=== PATIENT | male | born 1985 | race Hispanic/Latino ===

== ENCOUNTER 2017-04-10 17:54 | Inpatient (IN) | payer MEDICAID, OTHER ==
[2017-04-10 18:02] VITALS: BMI 25.8
[2017-04-10 19:50] LABS: BASO # 0.1 K/uL (0.0-0.2); BASO % 0.6 % (0.0-2.0); EOS # 0.3 K/uL (0.0-0.7); EOS % 2.7 % (0.0-4.0); HEMATOCRIT 40.6 % (35.0-51.0); LYMPH # 2.2 K/uL (1.0-4.3); MEAN CELL VOLUME 86.8 fL (80.0-94.0); MEAN CORPUSCULAR HEMOGLOBIN 29.1 pg (27.0-31.0); MEAN CORPUSCULAR HGB CONC 33.5 g/dL (33.0-37.0); MEAN PLATELET VOLUME 8.1 fL (7.2-11.7); MONO # 1.1 K/uL (0.0-0.8); MONO % 10.4 % (0.0-10.0); NRBC % 0.1 % (0.0-2.0); RED CELL DISTRIBUTION WIDTH 13.5 % (11.5-14.5); WHITE BLOOD COUNT 10.7 K/uL (4.8-10.8)
[2017-04-10 19:59] LABS: CHLORIDE 103 mmol/L (98-107)
[2017-04-10 20:00] LABS: POTASSIUM 4.1 mmol/L (3.6-5.2); SODIUM 139 mmol/L (132-148)
[2017-04-10 20:02] LABS: GFR AFRICAN-AMERICAN > 60
[2017-04-10 20:03] LABS: ALB/GLOB RATIO 1.1 (1.0-2.1); ALKALINE PHOSPHATASE 77 U/L (38-126); ALT/SGPT 88 U/L (21-72); AST/SGOT 52 U/L (17-59); BILIRUBIN,TOTAL 0.6 mg/dL (0.2-1.3); BLOOD UREA NITROGEN 23 mg/dL (9-20); CALCIUM 9.2 mg/dl (8.6-10.4); CARBON DIOXIDE 26 mmol/L (22-30); GLUCOSE,RANDOM 79 mg/dL (75-110); TOTAL PROTEIN 7.8 g/dL (6.3-8.3)
[2017-04-10 20:04] LABS: ALCOHOL SERUM < 10 mg/dl (0-10)
[2017-04-10 20:07] LABS: RBC URINE 1 /hpf (0-3); URINE BACTERIA RARE (<OCC); URINE BILIRUBIN NEGATIVE (NEGATIVE); URINE BLOOD NEGATIVE (NEGATIVE); URINE COLOR Yellow (YELLOW); URINE GLUCOSE (UA) NORMAL (Normal); URINE KETONE TRACE mg/dL (NEGATIVE); URINE LEUKOCYTE ESTERASE NEG Leu/uL (Negative); URINE PROTEIN NEGATIVE (NEGATIVE); WBC URINE < 1 /hpf (0-5)
--- NOTE | 2017-04-10 21:28 | C.PDOC ---
Time Seen by Provider: 04/10/17 18:30 Chief Complaint (Nursing): Psychiatric Evaluation History Per: Patient Onset/Duration Of Symptoms: Days (1) Current Symptoms Are (Timing): Still Present Suicide/Self Injury Attempted (Context): None Modifying Factor(s): Narcotics, Cocaine Severity: Moderate Associated Symptoms: Depression, Suicidal Thoughts Additional History Per: Prior Records Past Medical History Reviewed: Historical Data, Nursing Documentation, Vital Signs Vital Signs: Last Vital Signs Temp 98.8 F 04/10/17 18:02 Pulse 88 04/10/17 18:02 Resp 17 04/10/17 18:02 BP 125/78 04/10/17 18:02 Pulse Ox 96 04/10/17 18:02 - Medical History PMH: Anxiety, Depression, Hepatitis (C) Family History: States: Unknown Family Hx - Social History Hx Alcohol Use: No Hx Substance Use: Yes (IVDU) - Immunization History Hx Tetanus Toxoid Vaccination: Yes Hx Influenza Vaccination: No Hx Pneumococcal Vaccination: No Review Of Systems Except As Marked, All Systems Reviewed And Found Negative. Constitutional: Negative for: Fever Cardiovascular: Negative for: Chest Pain Respiratory: Negative for: Shortness of Breath Gastrointestinal: Negative for: Vomiting, Abdominal Pain Musculoskeletal: Negative for: Neck Pain Neurological: Negative for: Weakness, Numbness, Seizures Psych: Negative for: Psychosis Physical Exam - Physical Exam Appears: Non-toxic, No Acute Distress Skin: Warm, Dry Head: Atraumatic, Normacephalic Eye(s): bilateral: PERRL, EOMI Neck: Normal ROM, Supple Cardiovascular: Rhythm Regular Respiratory: Normal Breath Sounds, No Accessory Muscle Use Gastrointestinal/Abdominal: Soft, No Tenderness Back: No CVA Tenderness Extremity: Normal ROM, Other (Track matos on arms) Neurological/Psych: Oriented x3, Normal Motor, Normal Sensation ED Course And Treatment - Laboratory Results Result Diagrams: 04/10/17 19:42 04/10/17 19:42 Lab Interpretation: No Acute Changes ECG: Interpreted By Me, Viewed By Me ECG Rhythm: Sinus Rhythm ECG Interpretation: No Acute Changes Rate From EC O2 Sat by Pulse Oximetry: 96 Pulse Ox Interpretation: Normal Progress Note: Pt is medically stable for psychiatric admission. Disposition Counseled Patient/Family Regarding: Studies Performed, Diagnosis - Disposition Disposition: HOSPITALIZED Disposition Time: 21:28 Condition: STABLE - Clinical Impression Clinical Impression: Depression, Drug abuse Decision To Admit - Pt Status Changed To: Hospital Disposition Of: Inpatient - Admit Certification Admit to Inpatient:: After my assessment, the patient will require hospitalization for at least two midnights. This is because of the severity of symptoms shown, intensity of services needed, and/or the medical risk in this patient being treated as an outpatient. - InPatient: Physician Admission Certification: I certify that this patient requires 2 or more midnights of care for the following reason:: Psych. - . Bed Request Type: Psychiatry Admitting Physician: Richard Rizo Patient Diagnosis: Depression, Drug abuse
[2017-04-10 22:04] VITALS: O2SAT 98
[2017-04-11] MEDS ORDERED: Pneumococcal 23-Valent Vaccine IM ONE
--- NOTE | 2017-04-11 00:22 | PCM.BM ---
<Jacinto Young - Last Filed: 04/11/17 00:19> Treatment Plan Problems - Problems identified on initial assessmt Depression Date Initiated: 04/10/17 Time Initiated: 23:00 Assessment reference: NA Status: Active Suicidal Ideation Date Initiated: 04/10/17 Time Initiated: 23:00 Assessment reference: NA Status: Active Substance Abuse Date Initiated: 04/10/17 Time Initiated: 23:00 Assessment reference: NA Status: Active Comment: Cocaine/ Heroin/ Methadone Treatment assets and liabiliti Patient Assests: cooperative, self-reliant, ADL independent, physically healthy , negotiates basic needs Patient Liabilities: financial problems, substance abuse - Milieu Protocol Maintain good personal hygiene: daily Encourage regular showers, daily Remind patient to perform daily oral care, daily Assist patient to perform ADL's Maintain personal safety: every shift Educate patient to report safety concerns to staff, every shift Monitor environment for contraband/sharps Medication safety: Monitor for expected outcome, potential side effects: every shift, Assess barriers to learning: every shift, Assess readiness for medication education: every shift <Malgorzata Maynard - Last Filed: 04/11/17 10:47> Family Contact Family involvement: Family/SO is involved Family contact: Patient declines to allow family contact at present - Goals for Treatment Patient goals for treatment: "I need to attend my court date." Discharge/Continuing Care - Education Needs Education Needs: Patient Medication, Patient Coping Skills, Patient Community resources - Discharge Discharge Criteria: Tolerates medication w/o severe side effects, No longer exhibiting s/s of withdrawal Discharge to:: Home, With Family - Treatment Team Participation Discussed with Family/SO: No Was Patient/Family/SO present at Treatment Team Meeting: Yes <Christ Sauer - Last Filed: 04/11/17 18:07> - Diagnosis (1) Opioid use disorder, severe, dependence Status: Acute Interventions: 04/11/17 18:06 * Assess 7x/week regarding severity of withdrawal * Educate regarding risks, benefits, side effects and alternatives of medications * Use Motivational Interviewing for abstinence * Use CBT for relapse prevention * Medication management for withdrawal symptoms * Encourage medication assisted treatment * (2) Depression Status: Acute Interventions: 04/11/17 18:07 * Assess/adjust medications daily and /or as needed * See patient on an individual basis 7x/week to assess symptoms of depression * Monitor for side effects & effectiveness of medications *
[2017-04-11] MEDS ORDERED: Aluminum Hydroxide/Magnesium Hydroxide Susp (30 mL) PO PRN (09:45)
--- NOTE | 2017-04-11 14:50 | PCM.PSYCH ---
Initial Psychiatric Evaluation - Initial Psychiatric Evaluation Type of Admission: Voluntary Legal Status: Capacity Chief Complaint (in patient's own words): "I relapsed one month ago." History of Present Illness and Precipitating Events: Pt. is seen, chart reviewed, and case discussed with staff. Pt. is a 32 y/o male with depression and long history of multiple substance abuse. Pt. reports having suicidal ideation for 2 weeks after he relapsed. As per pt., he has past history of suicide attempts due to overdose on drugs. Pt. reports being in "rehab 10x" and "detox 20x." Pt. reports to using +30 bags of heroin IV, 3-4 g of cocaine IV, 60-70 mg of methadone ( purchased off the streets; used on top of heroin), and 1-2 mg of Klonapin. Pt. has been using heroin for 20 yrs. Pt. reports history of going to [facility] and was on 90 mg of methadone treatment. Pt. reports he does not like suboxone b/c it makes him sick. Pt. claims he smokes one pack of cigarettes daily. Pt. denies use of alcohol, marijuana, PCP, and other pain killers. After care discussed. Pt. states he must absolutely leave on Friday (04/14/17) due to a court date. Past Psych Hx: inpatient 3-4x; suicidal thoughts in the past, but did not follow through; mood swings (has manic episodes of variable durations) Trauma: denies Legal: charges for shoplifting--court date on Friday; currently on probation Medical Hx: Hep C. Family Hx: father--bipolar, alcoholic () Social Hx: single; 3 children; lives with girlfriend whose due date is in 2 weeks; works in [employer] Current Medications: Active Medications Generic Name Dose Route Start Last Admin Trade Name Freq PRN Reason Stop Dose Admin Al Hydrox/Mg Hydrox/Simethicone 30 ml 04/11/17 09:45 Maalox 30 Ml PO TID PRN Indigestion / Heartburn Clonidine HCl 0.1 mg 04/11/17 09:45 Catapres PO Q8 PRN COWS Score More or Equal to 5 Gabapentin 300 mg 04/11/17 10:00 04/11/17 14:16 Neurontin PO 300 mg TID LOIDA Administration Hydroxyzine HCl 50 mg 04/11/17 09:47 Atarax PO Q6H PRN Anxiety Ibuprofen 600 mg 04/11/17 09:47 Motrin Tab PO Q6H PRN Pain, moderate (4-7) Loperamide HCl 2 mg 04/11/17 09:45 Imodium PO Q8 PRN Diarrhea Methadone HCl 20 mg 04/11/17 10:00 04/11/17 10:08 Methadone PO 04/16/17 09:59 20 mg Q24H LOIDA Administration Taper Mirtazapine 15 mg 04/11/17 22:00 Remeron PO HS LOIDA Ondansetron HCl 4 mg 04/11/17 09:45 Zofran Tab PO Q8 PRN Nausea/Vomiting Quetiapine Fumarate 100 mg 04/11/17 22:00 Seroquel PO HS LOIDA Trazodone HCl 100 mg 04/11/17 09:47 Desyrel PO HS PRN Insomnia Past Psychiatric History - Past Psychiatric History Pertinent Medical Hx (Current Medical&Sleep Prob, Allergies): Allergies Allergy/AdvReac Type Severity Reaction Status Date / Time No Known Allergies Allergy Verified 04/10/17 18:20 QUEtiapine [SEROquel] 200 mg PO HS 04/10/17 clonazePAM [clonAZEPAM] 1 mg PO BID 04/10/17 Review of Systems - Neurological Neurological: UNREMARKABLE - Psychiatric Psychiatric: As Per HPI, Anxiety, Depression, Mood Swings, Suicidal Ideation Mental Status Examination - Personal Presentation Personal Presentation: Looks stated age - Affect Affect: Constricted - Motor Activity Motor Activity: Calm - Reliability in Providing Information Reliability in Providing Information: Good - Speech Speech: Organized - Mood Mood: Depressed, Anxious - Formal Thought Process Formal Thought Process: No Impairment - Obsessions/Compulsions Obsessions: No Compulsions: No - Cognitive Functions Orientation: Person, Place, Situation, Time Sensorium: Alert Attention/Concentration: Attentive Abstract Thinking: [place] Estimate of Intelligence: Average Judgement: Intact, as evidence by: Insight regarding need for hospitalization Memory: Recent intact, as evidence by: Ability to recall events of the day - Risk Risk: Suicidal, Diminished functioning - Strength & Assets Inventory Strength & Assets Inventory: Employment status - Limitations Limitations: Other (Legal issues interfere with adequate hospitalization duration) DSM 5 DX - DSM 5 DSM 5 Diagnosis: major depression, recurrent, severe, without psychosis r/o bipolar II vs. borderline personality Opioid use d/o-severe Opioid withdrawal Cocaine use d/o-severe Zbfqgyvf-qbnrfgws-yhiayernsc use d/o-moderate - Recommended/Plan of Treatment Treatment Recommendations and Plan of Treatment: Depression: Seroquel 100 mg hs Remeron 15 mg PO HS Groups and individual treatment CBT Opioid use d/o-severe CBT for relapse prevention Psychoeducation Supportive therapy, individual therapy Use AR for abstinence Opioid withdrawal Methadone taper Gabapentin for augmentation Support and psychoeducation daily Attend group activities daily Consider and encourage MAT Refer to after care. Cocaine use d/o-severe Gabapentin AR and CBT Efslfdan-pckbzpqw-ioulqivrld use d/o-mdoerate CBT Psychoeducation Supportive therapy, individual therapy Use AR for abstinence 33 min Projected ELOS: 2-3 days due to his pending legal issues Prognosis: fair - Smoking Cessation Smoking Cessation Initiated: No
--- NOTE | 2017-04-11 18:38 | CARD ---
APPROVED REPORT EKG Measurement Heart [id number] <Conclusion> Normal sinus rhythm Normal ECG
--- NOTE | 2017-04-12 11:05 | PCM.PYCHPN ---
Psychiatric Progress Note - Psychiatric Progress Note Patient seen today, length of contact: 16 min Patient Chief Complaint: "I am withdrawing" Problems Identified/Issues Discussed: The pt is seen, chart reviewed, case discussed with staff. The pt is compliant with medications and reports no side-effects. Symptoms are improving but needs more time to stabilize. After care discussed, support and psychoeducation given. Still wants to leave on Friday very early. Medication Change: Yes (detox changes daily) Medical Record Reviewed: Yes Mental Status Examination - Cognitive Function Orientation: Person, Place, Situation, Time Memory: Intact Attention: WNL Concentration: Poor Association: WNL Fund of Knowledge: WNL - Mood Mood: Depressed, Anxious - Affect Affect: Constricted - Speech Speech: Appropriate - Formal Thought Process Formal Thought Process: No Impairment - Suicidal Ideation Suicidal Ideation: No - Homicidal Ideation Homicidal Ideation: No Goal/Treatment Plan - Goal/Treatment Plan Need for Continued Stay: Discharge may exacerbated symptoms, Severe functional impairment Progress Toward Problem(s) and Goals/Treatment Plan: Depression: Seroquel 100 mg hs Remeron 15 mg PO HS Groups and individual treatment CBT Opioid use d/o-severe CBT for relapse prevention Psychoeducation Supportive therapy, individual therapy Use AK for abstinence Opioid withdrawal Methadone taper Gabapentin for augmentation Support and psychoeducation daily Attend group activities daily Consider and encourage MAT Refer to after care. Cocaine use d/o-severe Gabapentin AK and CBT Joduaaqn-nnexgiis-pmbdfrqwde use d/o-mdoerate CBT Psychoeducation Supportive therapy, individual therapy Use AK for abstinence Estimated Date of D/C: 04/14/17
[2017-04-14 07:40] VITALS: BP 115/79; PULSE 64; RESP 18; TEMP 97.7
--- NOTE | 2017-04-14 08:42 | PCM.PYCHDC ---
Mental Status Examination - Mental Status Examination Orientation: Person, Place, Situation, Time Memory: Intact Mood: Anxious Affect: Constricted Speech: Appropriate Attention: WNL Concentration: WNL Association: WNL Fund of Knowledge: WNL Formal Thought Process: No Impairment Suicidal Ideation: No Current Homicidal Ideation?: No Discharge Summary - Discharge Note Reason for Hospitalization: Depression, SI, heroin detox Consultations:: List each consultation separately and include: 1. Reason for request. 2. Findings. 3. Follow-up Summary of Hospital Course include:: 1. Description of specific treatment plan utilized for patients during their course of treatmen. 2. Summarize the time- course for resolution of acute symptoms and/or regressed behaviors. 3. Describe issues identified and worked on during hospitalization. 4. Describe medication utilized. 5. Describe medical problems identified and treated. 6. Reassessment of suicide risk Summary of Hospital Course: On admission: Pt. is a 32 y/o male with depression and long history of multiple substance abuse. Pt. reports having suicidal ideation for 2 weeks after he relapsed. As per pt., he has past history of suicide attempts due to overdose on drugs. Pt. reports being in "rehab 10x" and "detox 20x." Pt. reports to using +30 bags of heroin IV, 3-4 g of cocaine IV, 60-70 mg of methadone ( purchased off the streets; used on top of heroin), and 1-2 mg of Klonapin. Pt. has been using heroin for 20 yrs. Pt. reports history of going to [facility] and was on 90 mg of methadone treatment. Pt. reports he does not like suboxone b/c it makes him sick. Pt. claims he smokes one pack of cigarettes daily. Pt. denies use of alcohol, marijuana, PCP, and other pain killers. After care discussed. Pt. states he must absolutely leave on Friday (04/14/17) due to a court date. Hospital course: The pt was admitted and started on treatment with psychotherapy, support, psychoeducation and medications. IL and CBT used. The pt attended groups and activities, as well as milieu therapy. All the risks and benefits of medications are discussed and the patient understood and agreed. The pt improved with the treatments provided. After care discussed with the patient. He had to leave early withhis bc he had a "very important" court today - Final Diagnosis (DSM 5) Condition upon Discharge: STABLE DSM 5: Major depression, recurrent, severe, without psychosis r/o bipolar II vs. borderline personality Opioid use d/o-severe Opioid withdrawal Cocaine use d/o-severe Yuoxsfum-ldywlgtt-andrvvpbgl use d/o-moderate Disposition: HOME/ ROUTINE Follow-up Treatment Plan: Continue below medications after discharge. He will go to court and then a program Follow after care plan as discussed. Use relapse prevention skills Return to ER or call 911 if suicidal, homicidal or symptoms relapse. Stay away from stress, alcohol and drugs. See primary doctor once a year. Prescriptions/Medication Reconciliation: Gabapentin [Neurontin] 300 mg PO TID #90 cap Mirtazapine [Remeron] 30 mg PO HS #30 tab QUEtiapine [Seroquel] 100 mg PO HS #30 tab - Smoking Cessation Smoking Cessation Medication prescribed: No - Antipsychotic Medications Pt discharged on 2 or more routine antipsychotic medications: No
--- NOTE | 2017-04-14 08:42 | PCM.PYCHPN ---
Psychiatric Progress Note - Psychiatric Progress Note Patient seen today, length of contact: 16 min Patient Chief Complaint: "I am a little better" Problems Identified/Issues Discussed: The pt is seen, chart reviewed, case discussed with staff. Support given, CBT and TX used briefly No new symptoms reported, improving slowly and needs more time No SEs from medications, risks discussed. After care discussed Medication Change: Yes Medical Record Reviewed: Yes Mental Status Examination - Cognitive Function Orientation: Person, Place, Situation, Time Memory: Intact Attention: WNL Concentration: Poor Association: WNL Fund of Knowledge: WNL - Mood Mood: Depressed, Anxious - Affect Affect: Constricted - Speech Speech: Appropriate - Formal Thought Process Formal Thought Process: No Impairment - Suicidal Ideation Suicidal Ideation: No - Homicidal Ideation Homicidal Ideation: No Goal/Treatment Plan - Goal/Treatment Plan Need for Continued Stay: Discharge may exacerbated symptoms, Severe functional impairment Progress Toward Problem(s) and Goals/Treatment Plan: Depression: Seroquel 100 mg hs Remeron 15 mg PO HS Groups and individual treatment CBT Opioid use d/o-severe CBT for relapse prevention Psychoeducation Supportive therapy, individual therapy Use TX for abstinence Opioid withdrawal Methadone taper Gabapentin for augmentation Support and psychoeducation daily Attend group activities daily Consider and encourage MAT Refer to after care. Cocaine use d/o-severe Gabapentin [place] and CBT Rvpxqpjx-zavegyhm-bavscadszb use d/o-mdoerate CBT Psychoeducation Supportive therapy, individual therapy Use [place] for abstinence
== END 2017-04-14 07:05 | disposition home or self-care (01) | DRG 885 ==
LOC: C.ER 17:54 → C.5E 21:29
PROVIDERS: ADMIT Psychiatry & Neurology Psychiatry; ATTEND Psychiatry & Neurology Psychiatry
PROC: GZ3ZZZZ Medication Management (ICD-10-PCS; principal; 2017-04-10)
PROC: HZ2ZZZZ Detoxification Services for Substance Abuse Treatment (ICD-10-PCS; 2017-04-10)
PROC: GZHZZZZ Group Psychotherapy (ICD-10-PCS; 2017-04-10)
PROC: HZ59ZZZ Individual Psychotherapy for Substance Abuse Treatment, Supportive (ICD-10-PCS; 2017-04-10)
PROC: GZ56ZZZ Individual Psychotherapy, Supportive (ICD-10-PCS; 2017-04-10)
PROC: HZ46ZZZ Group Counseling for Substance Abuse Treatment, Psychoeducation (ICD-10-PCS; 2017-04-10)
DX: F33.2 Major depressive disorder, recurrent severe without psychotic features (principal); F11.23 Opioid dependence with withdrawal; R45.851 Suicidal ideations; F14.20 Cocaine dependence, uncomplicated; F13.10 Sedative, hypnotic or anxiolytic abuse, uncomplicated; F14.90 Cocaine use, unspecified, uncomplicated; F17.210 Nicotine dependence, cigarettes, uncomplicated; Z91.5 Personal history of self-harm; Z79.899 Other long term (current) drug therapy; Z65.3 Problems related to other legal circumstances

== ENCOUNTER 2017-06-21 21:20 | Inpatient (IN) | payer MEDICAID, OTHER ==
[2017-06-21 21:21] VITALS: BMI 25.8
--- NOTE | 2017-06-21 21:47 | C.PDOC ---
History Of Present Illness 32 y/o male presents to the ED c/o depression and SI. Plan is to overdose on drugs- he injects both heroin and cocaine. He reports many life stressors contributing to his depression including recent loss of job, drug problem, inability to visit his daughter due to restraining order. Time Seen by Provider: 06/21/17 21:46 Chief Complaint (Nursing): Psychiatric Evaluation History Per: Patient History/Exam Limitations: no limitations Onset/Duration Of Symptoms: Hrs Current Symptoms Are (Timing): Still Present Suicide/Self Injury Attempted (Context): Ingestion Associated Symptoms: Depression, Suicidal Thoughts, Suicidal Plan Recent travel outside of the [place]: No Additional History Per: Patient Past Medical History Reviewed: Historical Data, Nursing Documentation, Vital Signs Vital Signs: Last Vital Signs Temp 97.9 F 06/25/17 06:50 Pulse 73 06/25/17 06:50 Resp 20 06/25/17 06:50 BP 103/68 06/25/17 06:50 Pulse Ox 95 06/22/17 01:39 - Medical History PMH: Anxiety, Depression (2 SUICIDE ATTEMPTS IN THE PAST), Hepatitis (C) Denies: Diabetes, HIV, HTN, Chronic Kidney Disease, Seizures, Sexually Transmitted Disease Surgical History: No Surg Hx - [facility] Procedures DETOXIFICATION SERVICES FOR SUBSTANCE ABUSE TREATMENT (04/10/17) GROUP ACCOUNTS PAYABLE BOOKKEEPER FOR SUBSTANCE ABUSE TREATMENT, PSYCHOEDUCATION (04/10/17) GROUP PSYCHOTHERAPY (04/10/17) INDIV PSYCHOTHERAPY FOR SUBSTANCE ABUSE TREATMENT, SUPPORT (04/10/17) INDIVIDUAL PSYCHOTHERAPY, SUPPORTIVE (04/10/17) MEDICATION MANAGEMENT (04/10/17) Family History: States: Unknown Family Hx - Social History Hx Alcohol Use: No Hx Substance Use: Yes - Immunization History Hx Tetanus Toxoid Vaccination: Yes Hx Influenza Vaccination: No Hx Pneumococcal Vaccination: No Review Of Systems Except As Marked, All Systems Reviewed And Found Negative. Constitutional: Negative for: Fever, Chills Cardiovascular: Negative for: Chest Pain Respiratory: Negative for: Cough, Shortness of Breath Gastrointestinal: Negative for: Nausea, Vomiting, Abdominal Pain Neurological: Negative for: Weakness, Numbness, Headache Psych: Positive for: Depression, Suicidal ideation Physical Exam - Physical Exam Appears: Non-toxic, No Acute Distress Skin: Warm, Dry Eye(s): bilateral: PERRL Nose: No Epistaxis Oral Mucosa: Moist Cardiovascular: Rhythm Regular Respiratory: No Decreased Breath Sounds, No Accessory Muscle Use Gastrointestinal/Abdominal: Soft, No Tenderness, No Distention, No Guarding, No Rebound Neurological/Psych: Oriented x3 ED Course And Treatment - Laboratory Results Result Diagrams: 06/21/17 22:10 06/21/17 22:10 Medical Decision Making Medical Decision Making: EKG - normal sinus rhythm 76 BPM, normal EKG Disposition - Disposition Disposition: HOSPITALIZED Disposition Time: 01:29 Condition: STABLE - Clinical Impression Clinical Impression: Depression, Opioid use disorder, severe, dependence - Scribe Statement The provider has reviewed the documentation as recorded by the Scribe Roger James All medical record entries made by the Scribe were at my direction and personally dictated by me. I have reviewed the chart and agree that the record accurately reflects my personal performance of the history, physical exam, medical decision making, and the department course for this patient. I have also personally directed, reviewed, and agree with the discharge instructions and disposition.
[2017-06-21 22:13] LABS: BASO # 0.1 K/uL (0.0-0.2); BASO % 0.6 % (0.0-2.0); EOS # 0.1 K/uL (0.0-0.7); EOS % 1.3 % (0.0-4.0); LYMPH % 21.1 % (20.0-40.0); MEAN CELL VOLUME 87.3 fL (80.0-94.0); MEAN CORPUSCULAR HEMOGLOBIN 29.1 pg (27.0-31.0); MEAN CORPUSCULAR HGB CONC 33.3 g/dL (33.0-37.0); MEAN PLATELET VOLUME 8.2 fL (7.2-11.7); MONO # 0.7 K/uL (0.0-0.8); MONO % 7.7 % (0.0-10.0); RED CELL DISTRIBUTION WIDTH 13.9 % (11.5-14.5); WHITE BLOOD COUNT 9.5 K/uL (4.8-10.8)
[2017-06-21 22:24] LABS: URINE BACTERIA RARE (<OCC); URINE BILIRUBIN NEGATIVE (NEGATIVE); URINE BLOOD NEGATIVE (NEGATIVE); URINE COLOR Amber (YELLOW); URINE GLUCOSE (UA) NORMAL (Normal); URINE KETONE NEGATIVE (NEGATIVE); URINE LEUKOCYTE ESTERASE NEG Leu/uL (Negative); URINE PROTEIN NEGATIVE (NEGATIVE); URINE UROBILINOGEN NORMAL mg/dL (0.2-1.0); WBC URINE 1 /hpf (0-5)
[2017-06-21 22:25] LABS: ALB/GLOB RATIO 1.3 (1.0-2.1); ALCOHOL SERUM < 10 mg/dl (0-10); ALKALINE PHOSPHATASE 69 U/L (38-126); ALT/SGPT 98 U/L (21-72); AST/SGOT 53 U/L (17-59); BILIRUBIN,TOTAL 1.1 mg/dL (0.2-1.3); BLOOD UREA NITROGEN 24 mg/dL (9-20); CARBON DIOXIDE 28 mmol/L (22-30); CHLORIDE 101 mmol/L (98-107); GFR AFRICAN-AMERICAN > 60; GLUCOSE,RANDOM 95 mg/dL (75-110); POTASSIUM 3.6 mmol/L (3.6-5.2); SODIUM 137 mmol/L (132-148); TOTAL PROTEIN 7.9 g/dL (6.3-8.3)
[2017-06-22 01:40] VITALS: O2SAT 95
--- NOTE | 2017-06-22 03:53 | PCM.BM ---
<JesuszanShelly - Last Filed: 06/22/17 03:51> Treatment Plan Problems - Problems identified on initial assessmt Depression Date Initiated: 06/22/17 Time Initiated: 03:50 Assessment reference: NA Status: Active Priority: 1 Suicidal Ideations Date Initiated: 06/22/17 Time Initiated: 03:50 Assessment reference: NA Status: Active Priority: 2 Substance Abuse Date Initiated: 06/22/17 Time Initiated: 03:52 Assessment reference: NA Status: Active Priority: 3 Comment: Opiates Treatment assets and liabiliti Patient Assests: cooperative, insightful, resourceful, self-reliant, ADL independent, physically healthy, negotiates basic needs, cognitively intact Patient Liabilities: financial problems, substance abuse - Milieu Protocol Maintain good personal hygiene: daily Encourage regular showers, daily Remind patient to perform daily oral care, daily Assist patient to perform ADL's Maintain personal safety: every shift Monitor environment for contraband/sharps , other Educate patient to report safety concerns to staff (prn) Medication safety: Monitor for expected outcome, potential side effects: every shift, Assess barriers to learning: every shift, Assess readiness for medication education: every shift <Malgorzata Maynard - Last Filed: 06/23/17 11:26> Family Contact Family involvement: Famliy/SO not involved Family contact: Patient declines to allow family contact at present - Goals for Treatment Patient goals for treatment: "I just want an outpatient program." Discharge/Continuing Care - Education Needs Education Needs: Patient Medication, Patient Coping Skills, Patient Placement options, Patient Community resources - Discharge Discharge Criteria: Tolerates medication w/o severe side effects, Free of Suicidal thoughts, No longer exhibiting s/s of withdrawal Discharge to:: Home - Treatment Team Participation Discussed with Family/SO: No Was Patient/Family/SO present at Treatment Team Meeting: Yes <Richard Rizo - Last Filed: 06/23/17 11:31> - Diagnosis (1) Bipolar mixed affective disorder, moderate Status: Acute Interventions: 06/23/17 11:31 * Assess/adjust medications daily and /or as needed * See patient on an individual basis 7x/week to assess level of manic behaviors and stability * Discuss risks, benefits, side effects and alternatives of medications * (2) Opioid use disorder, severe, dependence Status: Acute Interventions: 06/23/17 11:31 * Assess 7x/week regarding severity of withdrawal * Educate regarding risks, benefits, side effects and alternatives of medications * Use Motivational Interviewing for abstinence * Use CBT for relapse prevention * Medication management for withdrawal symptoms * Encourage medication assisted treatment *
--- NOTE | 2017-06-22 17:37 | PCM.PSYCH ---
Initial Psychiatric Evaluation - Initial Psychiatric Evaluation Type of Admission: Voluntary Legal Status: Capacity Chief Complaint (in patient's own words): "I have heroin withdrawal symptoms" History of Present Illness and Precipitating Events: This is a 32 yo male with pphx of depression and heroin use d/o. Patient was admitted for depression, with suicidal ideation for 4 days. patient states he wants to shot as many drugs as he can and take klonopin. Patient stated that he can't seem to get anything together. Patient said he was laid off last week his fiance just had a baby a week ago and the baby is not sleeping at night and just cries. Patient explained he's barely making ends meet and at this point he 'd "rather ". Pt reproted that he does not want to end his life because he has a 5 days old son. Patient further explained that he's using about 40-50 bags of heroin IV daily and about 10-15 grams of cocaine daily IV. He reproted that he has opioid withdrawal symptoms including, yawning, hot and cold sweats, feeling like a cold turkey, He reproted that he was admitted in [facility] but left A due to court date. He reproted that he wants to complete his detox this time. Patient stated he get the money by stealing, scamming, bartering, etc. Patient currently admitted to suicidal ideations with a plan to "shoot drugs and eat klonopin". Patient currently denied any homicidal ideations along with auditory/visual hallucinations. Past meds: Klonopin 1 mg po bid Seroquel 100 mg po daily and 200 mg HS Neurontin 300 mg po TID , Current Medications: Active Medications Generic Name Dose Route Start Last Admin Trade Name Freq PRN Reason Stop Dose Admin Clonidine HCl 0.1 mg 06/22/17 03:52 Catapres PO Q8 PRN COWS Score More or Equal to 5 Gabapentin 200 mg 06/22/17 10:00 06/22/17 17:14 Neurontin PO 200 mg TID LOIDA Administration Hydroxyzine HCl 25 mg 06/22/17 03:52 Atarax PO Q6 PRN Anxiety Ibuprofen 400 mg 06/22/17 03:56 Motrin Tab PO Q6H PRN Pain, moderate (4-7) Loperamide HCl 2 mg 06/22/17 03:52 Imodium PO Q8 PRN Diarrhea Mirtazapine 7.5 mg 06/22/17 22:00 Remeron PO HS [facility] Ondansetron HCl 4 mg 06/22/17 03:52 Zofran Tab PO Q8 PRN Nausea/Vomiting Allergies denied Past Psychiatric History - Past Psychiatric History Previous Treatment History: Inpatient Prior Professional Help: detox Prior Psychiatric Treatment: [facility] History of Abuse: denied History of ETOH/Drug Use: please see HPI History of Family Illness: denied Pertinent Medical Hx (Current Medical&Sleep Prob, Allergies): Allergies Allergy/AdvReac Type Severity Reaction Status Date / Time No Known Allergies Allergy Verified 04/10/17 18:20 QUEtiapine [SEROquel] 200 mg PO HS 04/10/17 clonazePAM [clonAZEPAM] 1 mg PO BID 04/10/17 Gabapentin [Neurontin] 300 mg PO TID #90 cap 04/14/17 Mirtazapine [Remeron] 30 mg PO HS #30 tab 04/14/17 QUEtiapine [Seroquel] 100 mg PO HS #30 tab 04/14/17 Review of Systems - Review of Systems All systems: reviewed and no additional remarkable complaints except (HPI) - Constitutional Constitutional: Chills, Sweats, Malaise - EENT Eyes: Discharge Nose/Mouth/Throat: Nasal Congestion - Cardiovascular Cardiovascular: As Per HPI - Respiratory Respiratory: As Per HPI - Gastrointestinal Gastrointestinal: Abdominal Pain, Diarrhea - Genitourinary Genitourinary: UNREMARKABLE - Reproductive: Male Reproductive:Male: UNREMARKABLE - Musculoskeletal Musculoskeletal: Muscle Cramps - Neurological Neurological: UNREMARKABLE - Psychiatric Psychiatric: As Per HPI - Endocrine Endocrine: UNREMARKABLE - Hematologic/Lymphatic Hematologic: UNREMARKABLE Mental Status Examination - Personal Presentation Personal Presentation: Looks stated age - Affect Affect: Depressed - Motor Activity Motor Activity: Psychomotor Agitation - Reliability in Providing Information Reliability in Providing Information: Good - Speech Speech: Organized - Mood Mood: Depressed - Formal Thought Process Formal Thought Process: No Impairment - Hallucinations/Delusions Delusions: Other (denied) - Obsessions/Compulsions Obsessions: No Compulsions: No - Cognitive Functions Orientation: Person, Place, Situation, Time Sensorium: Alert Attention/Concentration: Attentive Abstract Thinking: As evidence by abstract perception of proverbs Estimate of Intelligence: Average Memory: Recent intact, as evidence by: Ability to recall events of the day - Risk Risk: Suicidal - Strength & Assets Inventory Strength & Assets Inventory: Intelligence, Family support, Education, Employment status, Employment history, Skills, Cooperative - Limitations Limitations: Other (chronic drug use) DSM 5 DX - DSM 5 DSM 5 Diagnosis: MDD recurrent, without psychotic features, Opioid use d/o, withdrawal symptoms, dependence - Recommended/Plan of Treatment Treatment Recommendations and Plan of Treatment: Start Remeron 15 mg po HS for depression and anxiety. Prn meds for opioid withdrawal. Monitor vitals. Pdychieducation provided regarding meds, benefits, s/e, risk benefits, risk and alternative. He verbalized understanding and agree with treatment plan. individual and group therapy. Therapy in milieu. Time spend 35 minutes Projected ELOS: 5-7 days Prognosis: fair with meds Discharge Plan and Discharge Criteria: improvement in depressive and opioid withdrawal symptoms. Recommend inpatient [facility] program for substance abuse after d/c
--- NOTE | 2017-06-23 10:13 | PCM.PYCHPN ---
Psychiatric Progress Note - Psychiatric Progress Note Patient seen today, length of contact: 15 min Patient Chief Complaint: I am still withdrawing. Problems Identified/Issues Discussed: Patient seen and evaluated, chart reviewed and discussed with the nurse. Today patient appears anxious and reports withdrawal symptoms. He reports depressed mood but denies any feelings of hopelessness and helplessness and denies any suicidal ideation or homicidal ideation. He denies any auditory or visual hallucinations. He is taking medication and denied any side effects. He needs some time for stabilization. Supportive therapy and psychoeducation were given. Medication Change: No Medical Record Reviewed: Yes Mental Status Examination - Cognitive Function Orientation: Person, Place, Situation, Time Memory: Intact Attention: WNL Concentration: Poor Association: WNL Fund of Knowledge: Poor - Mood Mood: Depressed, Anxious - Affect Affect: Constricted, Depressed - Speech Speech: Soft - Formal Thought Process Formal Thought Process: No Impairment - Suicidal Ideation Suicidal Ideation: No - Homicidal Ideation Homicidal Ideation: No Goal/Treatment Plan - Goal/Treatment Plan Need for Continued Stay: Severe depression anxiety, Severe functional impairment , Other Progress Toward Problem(s) and Goals/Treatment Plan: MDD recurrent, without psychotic features, Opioid use d/o, withdrawal symptoms, dependence Remeron 15 mg po HS for depression and anxiety. Prn meds for opioid withdrawal. Monitor vitals. Psychoeducation provided regarding meds, benefits, s/e, risk benefits, risk and alternative. He verbalized understanding and agree with treatment plan. individual and group therapy. Therapy in milieu. - Smoking Cessation Smoking Cessation Initiated: No
--- NOTE | 2017-06-23 17:22 | CARD ---
APPROVED REPORT EKG Measurement Heart [id number] <Conclusion> Normal sinus rhythm Normal ECG
--- NOTE | 2017-06-24 21:32 | PCM.PYCHPN ---
Psychiatric Progress Note - Psychiatric Progress Note Patient seen today, length of contact: 15 min Patient Chief Complaint: I am still withdrawing. Problems Identified/Issues Discussed: Patient seen and evaluated, chart reviewed and discussed with the nurse. As per the staff, pt remained isolated and withdrawn. He appears less depressed and less anxious but he still reports withdrawal symptoms. He denies any feelings of hopelessness and helplessness and denies any suicidal ideation or homicidal ideation. He is taking medication and denied any side effects. Supportive therapy and psychoeducation were given. Medication Change: Yes (increase remeron) Medical Record Reviewed: Yes Mental Status Examination - Cognitive Function Orientation: Person, Place, Situation, Time Memory: Intact Attention: WNL Concentration: Poor Association: WNL Fund of Knowledge: Poor - Mood Mood: Depressed, Anxious - Affect Affect: Constricted, Depressed - Speech Speech: Soft - Formal Thought Process Formal Thought Process: No Impairment - Suicidal Ideation Suicidal Ideation: No - Homicidal Ideation Homicidal Ideation: No Goal/Treatment Plan - Goal/Treatment Plan Need for Continued Stay: Severe depression anxiety, Severe functional impairment Progress Toward Problem(s) and Goals/Treatment Plan: MDD recurrent, without psychotic features, Opioid use d/o, withdrawal symptoms, dependence Methadone taper Remeron 30 mg po HS for depression and anxiety. Prn meds for opioid withdrawal. Monitor vitals. Psychoeducation provided regarding meds, benefits, s/e, risk benefits, risk and alternative. He verbalized understanding and agree with treatment plan. individual and group therapy. Therapy in milieu. - Smoking Cessation Smoking Cessation Initiated: No
[2017-06-25 06:51] VITALS: BP 103/68; PULSE 73; RESP 20; TEMP 97.9
--- NOTE | 2017-06-25 10:58 | PCM.PYCHDC ---
Mental Status Examination - Mental Status Examination Orientation: Person, Place, Situation, Time Memory: Intact Mood: Neutral Affect: Constricted Speech: Soft Attention: WNL Concentration: WNL Association: WNL Fund of Knowledge: WNL Formal Thought Process: No Impairment Description of patient's judgement and insight: good, fair Psychotic Thoughts and Behaviors: denies any AVH Suicidal Ideation: No Current Homicidal Ideation?: No Discharge Summary - Discharge Note Reason for Hospitalization: This is a 32 yo male with pphx of depression and heroin use d/o. Patient was admitted for depression, with suicidal ideation for 4 days. patient states he wants to shot as many drugs as he can and take klonopin. Patient stated that he can't seem to get anything together. Patient said he was laid off last week his fiance just had a baby a week ago and the baby is not sleeping at night and just cries. Patient explained he's barely making ends meet and at this point he 'd "rather ". Pt reproted that he does not want to end his life because he has a 5 days old son. Patient further explained that he's using about 40-50 bags of heroin IV daily and about 10-15 grams of cocaine daily IV. He reproted that he has opioid withdrawal symptoms including, yawning, hot and cold sweats, feeling like a cold turkey, He reproted that he was admitted in [facility] but left A due to court date. He reproted that he wants to complete his detox this time. Patient stated he get the money by stealing, scamming, bartering, etc. Patient currently admitted to suicidal ideations with a plan to "shoot drugs and eat klonopin". Patient currently denied any homicidal ideations along with auditory/visual hallucinations. Consultations:: List each consultation separately and include: 1. Reason for request. 2. Findings. 3. Follow-up Summary of Hospital Course include:: 1. Description of specific treatment plan utilized for patients during their course of treatmen. 2. Summarize the time- course for resolution of acute symptoms and/or regressed behaviors. 3. Describe issues identified and worked on during hospitalization. 4. Describe medication utilized. 5. Describe medical problems identified and treated. 6. Reassessment of suicide risk Summary of Hospital Course: During the course of his stay, patient (pt) started progressively improving and he no longer remained irritable, depressed, and suicidal. His mood and anxiety symptoms were improved and he started attending groups and meetings and started socializing. Patient denied any feelings of hopelessness, helplessness, and worthlessness, denied any problem with the sleep or appetite, denied suicidal ideation or homicidal ideation. Pt denied any auditory or visual hallucinations. Some changes were made in his current medications and patient was discharged on following medications. He tolerated these medications very well and denied any side effects. He was discharged to an [facility] program, '[facility] in [place], [place]. - Diagnosis (1) Bipolar mixed affective disorder, moderate Status: Acute (2) Opioid use disorder, severe, dependence Status: Acute - Final Diagnosis (DSM 5) Condition upon Discharge: STABLE DSM 5: MDD recurrent, without psychotic features, Opioid use d/o, withdrawal symptoms, dependence Disposition: HOME/ ROUTINE Follow-up Treatment Plan: Education: Pt was educated and counseled about the risks and benefits of taking and not taking medications. Pt was educated and counseled about the risks of drinking and abusing drugs. Pt was educated and counseled to go to the ER or call 911 if pt develop suicidal ideation or homicidal ideation, worsening of symptoms or severe side effects of the meds. Prescriptions/Medication Reconciliation: Gabapentin [Neurontin] 300 mg PO BID #60 cap Mirtazapine [Remeron] 30 mg PO HS #30 tab - Smoking Cessation Smoking Cessation Medication prescribed: No - Antipsychotic Medications Pt discharged on 2 or more routine antipsychotic medications: No
== END 2017-06-25 11:45 | disposition home or self-care (01) | DRG 744 ==
LOC: C.ER 21:20 → C.5E 06-22 01:29
PROVIDERS: ADMIT Psychiatry & Neurology Psychiatry; ATTEND Psychiatry & Neurology Psychiatry
PROC: HZ2ZZZZ Detoxification Services for Substance Abuse Treatment (ICD-10-PCS; principal; 2017-06-22)
PROC: HZ56ZZZ Individual Psychotherapy for Substance Abuse Treatment, Psychoeducation (ICD-10-PCS; 2017-06-22)
PROC: HZ42ZZZ Group Counseling for Substance Abuse Treatment, Cognitive-Behavioral (ICD-10-PCS; 2017-06-22)
PROC: HZ59ZZZ Individual Psychotherapy for Substance Abuse Treatment, Supportive (ICD-10-PCS; 2017-06-22)
PROC: HZ52ZZZ Individual Psychotherapy for Substance Abuse Treatment, Cognitive-Behavioral (ICD-10-PCS; 2017-06-22)
PROC: HZ46ZZZ Group Counseling for Substance Abuse Treatment, Psychoeducation (ICD-10-PCS; 2017-06-22)
DX: F11.23 Opioid dependence with withdrawal (principal); B19.20 Unspecified viral hepatitis C without hepatic coma; R45.851 Suicidal ideations; F33.8 Other recurrent depressive disorders; F41.9 Anxiety disorder, unspecified

== ENCOUNTER 2017-09-25 00:55 | Inpatient (IN) | payer MEDICAID, OTHER ==
[2017-09-25 00:56] VITALS: BMI 25.8
--- NOTE | 2017-09-25 02:26 | C.PDOC ---
History Of Present Illness 32 year old male with psychiatric history presents to the ED for cocaine and heroin detox. Last use earlier tonight prior to arrival. He denies suicidal or homicidal ideation. He has no other acute complaints at this time. Time Seen by Provider: 09/25/17 02:26 Chief Complaint (Nursing): Psychiatric Evaluation History Per: Patient History/Exam Limitations: no limitations Onset/Duration Of Symptoms: Unknown Current Symptoms Are (Timing): Still Present Suicide/Self Injury Attempted (Context): None Modifying Factor(s): Narcotics, Cocaine Associated Symptoms: denies: Suicidal Thoughts, Suicidal Plan Involuntary Hold By: None Past Medical History Reviewed: Historical Data, Nursing Documentation, Vital Signs Vital Signs: Last Vital Signs Temp 99.1 F 09/25/17 01:43 Pulse 84 09/25/17 01:43 Resp 20 09/25/17 01:43 BP 138/94 H 09/25/17 01:43 Pulse Ox 96 09/25/17 02:33 - Medical History PMH: Anxiety, Depression (2 SUICIDE ATTEMPTS IN THE PAST), Hepatitis (C) Denies: Diabetes, HIV, HTN, Chronic Kidney Disease, Seizures, Sexually Transmitted Disease - [facility] DETOXIFICATION SERVICES FOR SUBSTANCE ABUSE TREATMENT (06/22/17) GROUP HAND TILE MAKER FOR SUBSTANCE ABUSE TREATMENT, PSYCHOEDUCATION (06/22/17) GROUP HAND TILE MAKER FOR SUBSTANCE ABUSE, COGNITIVE BEHAVIORAL (06/22/17) GROUP PSYCHOTHERAPY (04/10/17) INDIV PSYCHOTHERAPY FOR SUBSTANCE ABUSE TREATMENT, SUPPORT (06/22/17) INDIV PSYCHOTHERAPY FOR SUBSTANCE ABUSE, COGNITIV BEHAVIORAL (06/22/17) INDIV PSYCHOTHERAPY FOR SUBSTANCE ABUSE, PSYCHOEDUCATION (06/22/17) INDIVIDUAL PSYCHOTHERAPY, SUPPORTIVE (04/10/17) MEDICATION MANAGEMENT (04/10/17) Family History: States: Unknown Family Hx - Social History Hx Alcohol Use: No Hx Substance Use: No - Immunization History Hx Tetanus Toxoid Vaccination: Yes Hx Influenza Vaccination: No Hx Pneumococcal Vaccination: No Review Of Systems Constitutional: Negative for: Fever, Chills ENT: Negative for: Ear Pain, Throat Pain Cardiovascular: Negative for: Chest Pain Respiratory: Negative for: Cough, Shortness of Breath Gastrointestinal: Negative for: Nausea, Vomiting, Abdominal Pain, Diarrhea Genitourinary: Negative for: Dysuria Skin: Negative for: Rash Neurological: Negative for: Headache Psych: Positive for: Other (Substance abuse ) Physical Exam - Physical Exam Appears: Non-toxic, No Acute Distress Skin: Warm, Dry Head: Normacephalic Eye(s): bilateral: Normal Inspection Oral Mucosa: Moist Neck: Trachea Midline, Supple Chest: Symmetrical Cardiovascular: Rhythm Regular (Rate Regular ) Respiratory: No Rales, No Rhonchi, No Wheezing Gastrointestinal/Abdominal: Soft, No Tenderness, No Distention Back: Normal Inspection Extremity: Normal ROM, Other (DP pulses 2+) Extremity: Bilateral: Atraumatic Neurological/Psych: Oriented x3 Gait: Steady ED Course And Treatment - Laboratory Results Result Diagrams: 09/25/17 02:36 09/25/17 02:36 O2 Sat by Pulse Oximetry: 96 Pulse Ox Interpretation: Normal Disposition Counseled Patient/Family Regarding: Studies Performed, Diagnosis - Disposition Disposition Time: :26 Condition: FAIR Forms: [facility] (Croatian) - Clinical Impression Clinical Impression: Drug abuse, Opioid use disorder, severe, dependence - Scribe Statement The provider has reviewed the documentation as recorded by the Jourdanibkelly Palmer Provider Attestation: All medical record entries made by the Scribe were at my direction and personally dictated by me. I have reviewed the chart and agree that the record accurately reflects my personal performance of the history, physical exam, medical decision making, and the department course for this patient. I have also personally directed, reviewed, and agree with the discharge instructions and disposition. Physician Patient Turnover Patient Signed Over To: Ankit Redding Handoff Comments: pending bed availability
[2017-09-25 02:42] LABS: BASO # 0.1 K/uL (0.0-0.2); BASO % 1.1 % (0.0-2.0); EOS # 0.4 K/uL (0.0-0.7); EOS % 3.3 % (0.0-4.0); HEMOGLOBIN 13.8 g/dL (12.0-18.0); LYMPH # 3.1 K/uL (1.0-4.3); LYMPH % 29.3 % (20.0-40.0); MEAN CELL VOLUME 87.3 fL (80.0-94.0); MEAN CORPUSCULAR HEMOGLOBIN 30.4 pg (27.0-31.0); MEAN CORPUSCULAR HGB CONC 34.8 g/dL (33.0-37.0); MEAN PLATELET VOLUME 9.7 fL (7.2-11.7); MONO # 0.8 K/uL (0.0-0.8); MONO % 7.8 % (0.0-10.0); NEUT # 6.2 K/uL (1.8-7.0); NEUT % 58.5 % (50.0-75.0); NRBC % 0.1 % (0.0-2.0); RBC 4.55 Mil/uL (4.40-5.90); RED CELL DISTRIBUTION WIDTH 13.5 % (11.5-14.5); WHITE BLOOD COUNT 10.7 K/uL (4.8-10.8)
[2017-09-25 02:50] LABS: URINE BILIRUBIN NEGATIVE (NEGATIVE); URINE BLOOD 3+ (NEGATIVE); URINE CLARITY Hazy (Clear); URINE COLOR Amber (YELLOW); URINE GLUCOSE (UA) NORMAL (Normal); URINE LEUKOCYTE ESTERASE NEG Leu/uL (Negative); URINE NITRATE NEGATIVE (NEGATIVE); URINE PROTEIN 1+ mg/dL (NEGATIVE)
[2017-09-25 02:57] LABS: BARBITURATES, UR NEGATIVE (NEGATIVE); BENZODIAZEPINES, UR NEGATIVE (NEGATIVE); PHENCYCLIDINE, UR NEGATIVE (NEGATIVE)
[2017-09-25 02:58] LABS: ALBUMIN 4.3 g/dL (3.5-5.0); ALT/SGPT 61 U/L (21-72); AST/SGOT 47 U/L (17-59); BLOOD UREA NITROGEN 26 mg/dL (9-20); CALCIUM 9.5 mg/dl (8.6-10.4); GFR AFRICAN-AMERICAN > 60; GFR NON-AFRICAN AMERICAN > 60
[2017-09-25 03:22] LABS: OPIATES, UR POSITIVE (NEGATIVE)
[2017-09-25 12:05] VITALS: O2SAT 97
--- NOTE | 2017-09-25 13:49 | PCM.BM ---
<SixtoKate santoanta - Last Filed: 09/25/17 13:47> Treatment Plan Problems - Problems identified on initial assessmt Depression Date Initiated: 09/25/17 Time Initiated: 13:48 Assessment reference: NA Status: Active Suicidal Ideation Date Initiated: 09/25/17 Time Initiated: 13:48 Assessment reference: NA Status: Monitor Treatment assets and liabiliti Patient Assests: cooperative, insightful, resourceful, self-reliant, ADL independent, physically healthy, negotiates basic needs, cognitively intact Patient Liabilities: substance abuse - Milieu Protocol Maintain good personal hygiene: every shift Encourage regular showers, every shift Remind patient to perform daily oral care, every shift Assist patient to perform ADL's Maintain personal safety: every shift Educate patient to report safety concerns to staff, every shift Monitor environment for contraband/sharps Medication safety: Monitor for expected outcome, potential side effects: every shift, Assess barriers to learning: every shift, Assess readiness for medication education: every shift <Richard Rizo - Last Filed: 09/26/17 11:15> - Diagnosis (1) Bipolar mixed affective disorder, moderate Status: Acute Interventions: 09/26/17 11:17 * Assess/adjust medications daily and /or as needed * See patient on an individual basis 7x/week to assess level of manic behaviors and stability * Discuss risks, benefits, side effects and alternatives of medications * (2) Opioid use disorder, severe, dependence Status: Acute Interventions: 09/26/17 11:17 * Assess 7x/week regarding severity of withdrawal * Educate regarding risks, benefits, side effects and alternatives of medications * Use Motivational Interviewing for abstinence * Use CBT for relapse prevention * Medication management for withdrawal symptoms * Encourage medication assisted treatment * <Malgorzata Maynard - Last Filed: 09/26/17 11:18> Family Contact Family involvement: Famliy/SO not involved - Goals for Treatment Patient goals for treatment: "I want to go to rehab." Discharge/Continuing Care - Education Needs Education Needs: Patient Medication, Patient Coping Skills, Patient Placement options, Patient Community resources - Discharge Discharge Criteria: Tolerates medication w/o severe side effects, No longer exhibiting s/s of withdrawal Discharge to:: Substance Abuse Rehab - Treatment Team Participation Discussed with Family/SO: No Was Patient/Family/SO present at Treatment Team Meeting: Yes
--- NOTE | 2017-09-26 10:10 | PCM.PSYCH ---
Initial Psychiatric Evaluation - Initial Psychiatric Evaluation Type of Admission: Voluntary Legal Status: Capacity Chief Complaint (in patient's own words): I was feeling depressed and suicidal.' History of Present Illness and Precipitating Events: This is a 32 yo CM single, who lives alone, came to the ED with depressed mood and suicidal ideation. As per the ED note, pt resented to ED saying, "I'm having a hard time right now; " I'm on 80mg of Methadone;" I'm getting worse;" Now I'm taking Methadone and shooting up coke;" I don't know how to live without coke;" It's making me suicidal." Then I get manic;" I think I'm a little manic;" 'I haven't slept in 4 days" Pt has been abusing daily IV bags of heroin/cocaine for the past several months while receiving Methadone and psychiatric treatment at [facility]; However, Pt has been non-compliant with his psychiatric meds for the past "couple of days" Pt reports seeking inpt rehab services at [facility]. He reports of abusing few bags 2 days ago, cocaine and marihuana yesterday. Pt reports irritable mood, racing thoughts and flights of ideas. He also reports depressed mood, feelings of helplessness and poor sleep. However, he denies any AVH or any paranoia. He also reports withdrawal symptoms including nausea, anxiety, and sweating. PMH: None reported Current Medications: Active Medications Generic Name Dose Route Start Last Admin Trade Name Freq PRN Reason Stop Dose Admin Gabapentin 300 mg 09/25/17 18:00 09/25/17 17:32 Neurontin PO 300 mg TID LOIDA Administration Haloperidol 5 mg 09/25/17 17:13 Haldol PO Q4 PRN Agitation Hydroxyzine HCl 50 mg 09/25/17 17:14 Atarax PO Q6 PRN Anxiety Methadone HCl 80 mg 09/26/17 10:00 Methadone PO DAILY LOIDA Mirtazapine 30 mg 09/26/17 22:00 Remeron PO HS LOIDA Pneumococcal Polyvalent Vaccine 0.5 ml 09/28/17 10:00 Pneumovax 23 Vaccine IM 09/28/17 10:01 .ONCE ONE Trazodone HCl 100 mg 09/25/17 17:15 Desyrel PO HS PRN Insomnia Past Psychiatric History - Past Psychiatric History Previous Treatment History: Inpatient Pertinent Medical Hx (Current Medical&Sleep Prob, Allergies): Allergies Allergy/AdvReac Type Severity Reaction Status Date / Time FISH Allergy RASH Verified 09/25/17 13:45 turkey Allergy RASH Verified 09/25/17 13:45 clonazePAM [clonAZEPAM] 1 mg PO BID 04/10/17 Mirtazapine [Remeron] 30 mg PO HS #30 tab 06/25/17 Methadone [Methadose] 80 mg PO DAILY 09/25/17 Review of Systems - Review of Systems All systems: reviewed and no additional remarkable complaints except - Psychiatric Psychiatric: Anxiety, Irritability, Mood Swings, Suicidal Ideation Mental Status Examination - Personal Presentation Personal Presentation: Looks stated age - Affect Affect: Constricted, Depressed - Motor Activity Motor Activity: Calm - Reliability in Providing Information Reliability in Providing Information: Fair - Speech Speech: Organized - Mood Mood: Depressed, Anxious - Formal Thought Process Formal Thought Process: Flight of ideas - Obsessions/Compulsions Obsessions: No Compulsions: No - Cognitive Functions Orientation: Person, Place, Situation, Time Sensorium: Alert Attention/Concentration: Attentive Abstract Thinking: [place] Estimate of Intelligence: Below average Judgement: Imparied, as evidence by: Poor judgement, Intact, as evidence by: Insight regarding need for hospitalization - Risk Risk: Suicidal, Withdrawal, Diminished functioning - Limitations Limitations: Living alone DSM 5 DX - DSM 5 DSM 5 Diagnosis: Bipolar disorder depressed severe without psychotic features Opioid use disorder severe on maintenance therapy Cocaine use disorder severe Cannabis use disorder moderate - Recommended/Plan of Treatment Treatment Recommendations and Plan of Treatment: Bipolar disorder depressed severe without psychotic features CBT Psychoeducation Supportive therapy, group therapy, individual therapy Depakote 250 mg PO BID Neurontin 300 mg by mouth 3 times a day Remeron 30 mg by mouth daily at bedtime Opioid use disorder severe on maintenance therapy CBT Psychoeducation Supportive therapy, individual therapy Use MA for abstinence Methadone 80 mg po Daily Cocaine use disorder severe Monitor signs and symptoms Use MA for abstinence Cannabis use disorder moderate Monitor signs and symptoms Use MA for abstinence
[2017-09-27] MEDS: Divalproex 250 mg DR Tab PO SCH ×2 (09:47→17:24)
--- NOTE | 2017-09-27 18:55 | PCM.PYCHPN ---
Psychiatric Progress Note - Psychiatric Progress Note Patient seen today, length of contact: 15 minutes Patient Chief Complaint: I'm feeling little better. Problems Identified/Issues Discussed: Patient seen, chart reviewed, case discussed with the staff. Issues related to illness and treatment were discussed with the patient. Reported compliant with treatment with no adverse affects. Tolerating treatment very well. Patient reported feeling better with the treatment. At the time of evaluation, patient was awake alert oriented 3, had no delusions , no auditory or visual hallucinations, no suicidal ideations or homicidal ideations. Aftercare discussed with the patient. Medical Problems: None reported Diagnostic Results: Reviewed DSM 5 Symptoms Update: Improving with treatment Medication Change: No Medical Record Reviewed: Yes Mental Status Examination - Cognitive Function Orientation: Person, Place, Situation, Time Memory: Intact Attention: WNL Concentration: WNL Association: WNL Fund of Knowledge: [facility] Decription of patient's judgement and insights: Fair - Mood Mood: Depressed - Affect Affect: Depressed - Speech Speech: Appropriate - Formal Thought Process Formal Thought Process: No Impairment - Suicidal Ideation Suicidal Ideation: No - Homicidal Ideation Homicidal Ideation: No Goal/Treatment Plan - Goal/Treatment Plan Need for Continued Stay: Remain at risks for inpatient hospitalization, Discharge may exacerbated symptoms, Severe functional impairment Progress Toward Problem(s) and Goals/Treatment Plan: Patient education Supportive therapy Continue treatment as before Patient will go to [facility] for follow-up care after discharge from the hospital. Estimated Date of D/C: 10/02/17 - Smoking Cessation Smoking Cessation Initiated: No
[2017-09-28] MEDS: Divalproex 250 mg DR Tab PO SCH ×2 (09:26→17:16)
[2017-09-28] MEDS: Methadone 40 mg Tab PO SCH (09:28)
[2017-09-28] MEDS ORDERED: Influenza Vaccine 60 mcg/0.5 mL SYR (4YR UP) IM ONE (10:00)
[2017-09-28] MEDS ORDERED: Pneumococcal 23-Valent Vaccine IM ONE (10:00)
--- NOTE | 2017-09-28 18:26 | PCM.PYCHPN ---
Psychiatric Progress Note - Psychiatric Progress Note Patient seen today, length of contact: 15 minutes Patient Chief Complaint: I'm feeling much better. Problems Identified/Issues Discussed: Patient seen, chart reviewed, case discussed with the staff. Issues related to illness and treatment were discussed with the patient. Reported compliant with treatment with no adverse affects. Tolerating treatment very well. Patient reported feeling much better with the treatment. At the time of evaluation, patient was awake alert oriented 3, had no delusions , no auditory or visual hallucinations, no suicidal ideations or homicidal ideations. Aftercare discussed with the patient. Medical Problems: None reported Diagnostic Results: Reviewed DSM 5 Symptoms Update: Improving with treatment Medication Change: No Medical Record Reviewed: Yes Mental Status Examination - Cognitive Function Orientation: Person, Place, Situation, Time Memory: Intact Attention: WNL Concentration: WNL Association: WN Fund of Knowledge: [facility] Decription of patient's judgement and insights: Fair - Mood Mood: Depressed (Less than before) - Affect Affect: Depressed - Speech Speech: Appropriate - Formal Thought Process Formal Thought Process: No Impairment Psychotic Thoughts and Behaviors: None - Suicidal Ideation Suicidal Ideation: No - Homicidal Ideation Homicidal Ideation: No Goal/Treatment Plan - Goal/Treatment Plan Need for Continued Stay: Remain at risks for inpatient hospitalization, Discharge may exacerbated symptoms, Severe functional impairment Progress Toward Problem(s) and Goals/Treatment Plan: Patient education Supportive therapy Continue treatment as before Patient will go to [facility] for follow-up care after discharge from the hospital. Estimated Date of D/C: 10/02/17 - Smoking Cessation Smoking Cessation Initiated: No
[2017-09-29] MEDS: Divalproex 250 mg DR Tab PO SCH (09:09)
[2017-09-29] MEDS: Methadone 40 mg Tab PO SCH (09:10)
[2017-09-29 09:18] VITALS: BP 120/71; PULSE 74; RESP 20; TEMP 97.8
--- NOTE | 2017-09-29 11:01 | PCM.PYCHPN ---
Psychiatric Progress Note - Psychiatric Progress Note Patient seen today, length of contact: 15 minutes Patient Chief Complaint: I was feeling depressed and suicidal.' Medication Change: No Medical Record Reviewed: Yes Mental Status Examination - Cognitive Function Orientation: Person, Place, Situation, Time Memory: Intact Attention: WNL Concentration: WNL Association: WNL Fund of Knowledge: WNL - Mood Mood: Depressed (Less than before) - Affect Affect: Depressed - Speech Speech: Appropriate - Formal Thought Process Formal Thought Process: No Impairment - Suicidal Ideation Suicidal Ideation: No - Homicidal Ideation Homicidal Ideation: No Goal/Treatment Plan - Goal/Treatment Plan Need for Continued Stay: Remain at risks for inpatient hospitalization, Discharge may exacerbated symptoms, Severe functional impairment Progress Toward Problem(s) and Goals/Treatment Plan: Bipolar disorder depressed severe without psychotic features CBT Psychoeducation Supportive therapy, group therapy, individual therapy Depakote 250 mg PO BID Neurontin 300 mg by mouth 3 times a day Remeron 30 mg by mouth daily at bedtime Opioid use disorder severe on maintenance therapy CBT Psychoeducation Supportive therapy, individual therapy Use [place] for abstinence Methadone 80 mg po Daily Cocaine use disorder severe Monitor signs and symptoms Use [place] for abstinence Cannabis use disorder moderate Monitor signs and symptoms Use [place] for abstinence Estimated Date of D/C: 10/02/17
--- NOTE | 2017-09-29 14:55 | PCM.PYCHDC ---
Mental Status Examination - Mental Status Examination Orientation: Person, Place, Situation, Time Memory: Intact Mood: Neutral Affect: Constricted Speech: Soft Attention: WNL Concentration: WNL Association: WNL Fund of Knowledge: WNL Formal Thought Process: No Impairment Description of patient's judgement and insight: good, fair Psychotic Thoughts and Behaviors: denies any AVH Suicidal Ideation: No Current Homicidal Ideation?: No Discharge Summary - Discharge Note Reason for Hospitalization: This is a 32 yo CM single, who lives alone, came to the ED with depressed mood and suicidal ideation. As per the ED note, pt resented to ED saying, "I'm having a hard time right now; " I'm on 80mg of Methadone;" I'm getting worse;" Now I'm taking Methadone and shooting up coke;" I don't know how to live without coke;" It's making me suicidal." Then I get manic;" I think I'm a little manic;" 'I haven't slept in 4 days" Pt has been abusing daily IV bags of heroin/cocaine for the past several months while receiving Methadone and psychiatric treatment at [facility]; However, Pt has been non-compliant with his psychiatric meds for the past "couple of days" Pt reports seeking inpt rehab services at [facility]. He reports of abusing few bags 2 days ago, cocaine and marihuana yesterday. Pt reports irritable mood, racing thoughts and flights of ideas. He also reports depressed mood, feelings of helplessness and poor sleep. However, he denies any AVH or any paranoia. He also reports withdrawal symptoms including nausea, anxiety, and sweating. Consultations:: List each consultation separately and include: 1. Reason for request. 2. Findings. 3. Follow-up Summary of Hospital Course include:: 1. Description of specific treatment plan utilized for patients during their course of treatmen. 2. Summarize the time- course for resolution of acute symptoms and/or regressed behaviors. 3. Describe issues identified and worked on during hospitalization. 4. Describe medication utilized. 5. Describe medical problems identified and treated. 6. Reassessment of suicide risk Summary of Hospital Course: During the course of his stay, patient (pt) started progressively improving and he no longer remained irritable, depressed, and suicidal. His mood and anxiety symptoms were improved and he started attending groups and meetings and started socializing. Patient denied any feelings of hopelessness, helplessness, and worthlessness, denied any problem with the sleep or appetite, denied suicidal ideation or homicidal ideation. Pt denied any auditory or visual hallucinations. Some changes were made in his current medications and patient was discharged on following medications. He tolerated these medications very well and denied any side effects. Pt to follow-up with [facility] rehab today, for bed availability. - Diagnosis (1) Bipolar mixed affective disorder, moderate Status: Acute (2) Opioid use disorder, severe, dependence Status: Acute - Final Diagnosis (DSM 5) Condition upon Discharge: FAIR DSM 5: Bipolar disorder depressed severe without psychotic features Opioid use disorder severe on maintenance therapy Cocaine use disorder severe Cannabis use disorder moderate Disposition: HOME/ ROUTINE Follow-up Treatment Plan: Education: Pt was educated and counseled about the risks and benefits of taking and not taking medications. Pt was educated and counseled about the risks of drinking and abusing drugs. Pt was educated and counseled to go to the ER or call 911 if pt develop suicidal ideation or homicidal ideation, worsening of symptoms or severe side effects of the meds. Prescriptions/Medication Reconciliation: Divalproex [Depakote DR] 500 mg PO BID #60 tcp Gabapentin [Neurontin] 300 mg PO BID #60 cap Mirtazapine [Remeron] 30 mg PO HS #30 tab traZODone [Desyrel] 100 mg PO HS PRN #30 tab PRN Reason: Insomnia - Smoking Cessation Smoking Cessation Medication prescribed: No - Antipsychotic Medications Pt discharged on 2 or more routine antipsychotic medications: No
[2017-09-29] MEDS ORDERED: Divalproex 500 mg DR Tab PO SCH (18:00)
== END 2017-09-29 15:30 | disposition home or self-care (01) | DRG 430 ==
LOC: C.ER 00:55 → EEVIPCON 00:55 → C.9E 10:29 → C.5E 10:29 → UNDOADMIN 10:29 → C.5E 11:53 → C.9E 11:53
PROVIDERS: ADMIT Psychiatry & Neurology Psychiatry; ATTEND Psychiatry & Neurology Psychiatry
PROC: GZHZZZZ Group Psychotherapy (ICD-10-PCS; principal; 2017-09-25)
PROC: GZ58ZZZ Individual Psychotherapy, Cognitive-Behavioral (ICD-10-PCS; 2017-09-25)
PROC: HZ2ZZZZ Detoxification Services for Substance Abuse Treatment (ICD-10-PCS; 2017-09-25)
PROC: HZ52ZZZ Individual Psychotherapy for Substance Abuse Treatment, Cognitive-Behavioral (ICD-10-PCS; 2017-09-25)
PROC: HZ42ZZZ Group Counseling for Substance Abuse Treatment, Cognitive-Behavioral (ICD-10-PCS; 2017-09-25)
PROC: HZ59ZZZ Individual Psychotherapy for Substance Abuse Treatment, Supportive (ICD-10-PCS; 2017-09-25)
PROC: HZ56ZZZ Individual Psychotherapy for Substance Abuse Treatment, Psychoeducation (ICD-10-PCS; 2017-09-25)
PROC: GZ56ZZZ Individual Psychotherapy, Supportive (ICD-10-PCS; 2017-09-25)
PROC: HZ46ZZZ Group Counseling for Substance Abuse Treatment, Psychoeducation (ICD-10-PCS; 2017-09-25)
DX: F31.4 Bipolar disorder, current episode depressed, severe, without psychotic features (principal); R45.851 Suicidal ideations; F11.23 Opioid dependence with withdrawal; F14.90 Cocaine use, unspecified, uncomplicated; F12.90 Cannabis use, unspecified, uncomplicated

== ENCOUNTER 2017-10-11 01:09 | Inpatient (IN) | payer MEDICAID, OTHER ==
[2017-10-11 01:11] VITALS: BMI 25.8
--- NOTE | 2017-10-11 01:32 | C.PDOC ---
History Of Present Illness Patient presents to ED with complaints of being depressed. Patient states he feels that his medications are making him more depressed and suicidal. Denies any physical complaints. Time Seen by Provider: 10/11/17 01:32 History/Exam Limitations: no limitations Onset/Duration Of Symptoms: Hrs Current Symptoms Are (Timing): Still Present Suicide/Self Injury Attempted (Context): None Modifying Factor(s): None, Narcotics Severity: Moderate Pain Scale Rating Of: 4 Associated Symptoms: Depression, Suicidal Thoughts. denies: Suicidal Plan Involuntary Hold By: None Recent travel outside of the [place]: No Additional History Per: Patient Past Medical History Reviewed: Historical Data, Nursing Documentation, Vital Signs Vital Signs: Last Vital Signs Temp 98.7 F 10/11/17 01:36 Pulse 87 10/11/17 01:36 Resp 20 10/11/17 01:36 BP 126/77 10/11/17 01:36 Pulse Ox 97 10/11/17 01:36 - Medical History PMH: Anxiety, Depression, Hepatitis (C) [place] DETOXIFICATION SERVICES FOR SUBSTANCE ABUSE TREATMENT (09/25/17) GROUP ULTRASOUND APPLICATIONS SPECIALIST FOR SUBSTANCE ABUSE TREATMENT, PSYCHOEDUCATION (09/25/17) GROUP ULTRASOUND APPLICATIONS SPECIALIST FOR SUBSTANCE ABUSE, COGNITIVE BEHAVIORAL (09/25/17) GROUP PSYCHOTHERAPY (09/25/17) INDIV PSYCHOTHERAPY FOR SUBSTANCE ABUSE TREATMENT, SUPPORT (09/25/17) INDIV PSYCHOTHERAPY FOR SUBSTANCE ABUSE, COGNITIV BEHAVIORAL (09/25/17) INDIV PSYCHOTHERAPY FOR SUBSTANCE ABUSE, PSYCHOEDUCATION (09/25/17) INDIVIDUAL PSYCHOTHERAPY, COGNITIVE-BEHAVIORAL (09/25/17) INDIVIDUAL PSYCHOTHERAPY, SUPPORTIVE (09/25/17) MEDICATION MANAGEMENT (04/10/17) Family History: States: Unknown Family Hx - Social History Hx Alcohol Use: No Hx Substance Use: Yes (Methadose) - Immunization History Hx Tetanus Toxoid Vaccination: Yes Hx Influenza Vaccination: No Hx Pneumococcal Vaccination: No Review Of Systems Constitutional: Negative for: Fever, Chills Respiratory: Negative for: Shortness of Breath Gastrointestinal: Negative for: Nausea, Vomiting, Diarrhea Neurological: Negative for: Weakness, Numbness Psych: Positive for: Depression, Suicidal ideation Physical Exam - Physical Exam Appears: Non-toxic, No Acute Distress Skin: Warm, Dry Head: Normacephalic Eye(s): bilateral: Normal Inspection Oral Mucosa: Moist Neck: Supple Chest: Symmetrical, No Tenderness Cardiovascular: Rhythm Regular Respiratory: No Decreased Breath Sounds, No Rales, No Rhonchi, No Wheezing Gastrointestinal/Abdominal: Soft, No Tenderness Back: Normal Inspection Extremity: Bilateral: Atraumatic Neurological/Psych: Oriented x3, Normal Speech, Normal Cognition Gait: Steady ED Course And Treatment - Laboratory Results Result Diagrams: 10/11/17 02:01 10/11/17 02:01 Progress Note: Ordered blood work and urinalysis. Disposition Discussed With Dr.: Tania Duggan Comment: accepted the pt on h is service and took over the care at 5:38AM Doctor Will See Patient In The: Hospital Counseled Patient/Family Regarding: Studies Performed, Diagnosis - Disposition Disposition: HOSPITALIZED Disposition Time: 01:32 Condition: FAIR - POA Present On Arrival: None - Clinical Impression Clinical Impression: Major depression, Opioid use disorder, severe, dependence - Scribe Statement The provider has reviewed the documentation as recorded by the Jourdanibe Reji Dowling All medical record entries made by the Scribe were at my direction and personally dictated by me. I have reviewed the chart and agree that the record accurately reflects my personal performance of the history, physical exam, medical decision making, and the department course for this patient. I have also personally directed, reviewed, and agree with the discharge instructions and disposition. Decision To Admit - Pt Status Changed To: Hospital Disposition Of: Inpatient - Admit Certification Admit to Inpatient:: After my assessment, the patient will require hospitalization for at least two midnights. This is because of the severity of symptoms shown, intensity of services needed, and/or the medical risk in this patient being treated as an outpatient. - InPatient: Physician Admission Certification: I certify that this patient requires 2 or more midnights of care for the following reason:: After my assessment, the patient will require hospitalization for at least two midnights. This is because of the severity of symptoms shown, intensity of services needed, and/or the medical risk in this patient being treated as an outpatient. - . Bed Request Type: Psychiatry Admitting Physician: Tania Duggan Patient Diagnosis: Major depression, Opioid use disorder, severe, dependence
[2017-10-11 02:08] LABS: BASO % 0.4 % (0.0-2.0); EOS # 0.1 K/uL (0.0-0.7); EOS % 0.6 % (0.0-4.0); HEMOGLOBIN 13.1 g/dL (12.0-18.0); LYMPH % 23.1 % (20.0-40.0); MEAN CELL VOLUME 86.8 fL (80.0-94.0); MEAN CORPUSCULAR HEMOGLOBIN 30.2 pg (27.0-31.0); MEAN CORPUSCULAR HGB CONC 34.9 g/dL (33.0-37.0); MEAN PLATELET VOLUME 8.7 fL (7.2-11.7); MONO # 0.7 K/uL (0.0-0.8); MONO % 7.8 % (0.0-10.0); NEUT % 68.1 % (50.0-75.0); RBC 4.34 Mil/uL (4.40-5.90); WHITE BLOOD COUNT 8.9 K/uL (4.8-10.8)
[2017-10-11 02:29] LABS: BARBITURATES, UR NEGATIVE (NEGATIVE); BENZODIAZEPINES, UR NEGATIVE (NEGATIVE); PHENCYCLIDINE, UR NEGATIVE (NEGATIVE)
[2017-10-11 02:33] LABS: ALB/GLOB RATIO 1.1 (1.0-2.1); ALBUMIN 4.3 g/dL (3.5-5.0); ALT/SGPT 195 U/L (21-72); AST/SGOT 102 U/L (17-59); BLOOD UREA NITROGEN 21 mg/dL (9-20); CALCIUM 9.5 mg/dl (8.6-10.4); GFR AFRICAN-AMERICAN > 60; GFR NON-AFRICAN AMERICAN > 60
[2017-10-11 02:35] LABS: SQUAMOUS EPITHIAL < 1 /hpf (0-5); URINE BILIRUBIN NEGATIVE (NEGATIVE); URINE BLOOD NEGATIVE (NEGATIVE); URINE CLARITY Hazy (Clear); URINE COLOR Amber (YELLOW); URINE GLUCOSE (UA) NORMAL (Normal); URINE LEUKOCYTE ESTERASE NEG Leu/uL (Negative); URINE PROTEIN NEGATIVE (NEGATIVE)
[2017-10-11 02:53] LABS: OPIATES, UR POSITIVE (NEGATIVE)
[2017-10-11 06:00] VITALS: O2SAT 100
--- NOTE | 2017-10-11 06:45 | PCM.BM ---
<Gill Lopez - Last Filed: 10/11/17 06:44> Treatment Plan Problems - Problems identified on initial assessmt Depression Date Initiated: 10/11/17 Time Initiated: 06:30 Assessment reference: NA Status: Active Substance Abuse Date Initiated: 10/11/17 Time Initiated: 06:30 Assessment reference: NA Status: Active Treatment assets and liabiliti Patient Assests: cooperative, insightful, resourceful, self-reliant, ADL independent, physically healthy, negotiates basic needs, cognitively intact Patient Liabilities: financial problems, relationship conflicts, substance abuse - Milieu Protocol Maintain good personal hygiene: daily Encourage regular showers, daily Remind patient to perform daily oral care, daily Assist patient to perform ADL's Conduct patient checks and document Observation sheet: Q15 minutes Maintain personal safety: every shift Educate patient to report safety concerns to staff, every shift Monitor environment for contraband/sharps Medication safety: Monitor for expected outcome, potential side effects: every shift, Assess barriers to learning: every shift, Assess readiness for medication education: every shift <Malgorzata Maynard - Last Filed: 10/13/17 11:33> Family Contact Family involvement: Famliy/SO not involved - Goals for Treatment Patient goals for treatment: "I'm going to rehab." Discharge/Continuing Care - Education Needs Education Needs: Patient Medication, Patient Coping Skills - Discharge Discharge Criteria: Tolerates medication w/o severe side effects, No longer exhibiting s/s of withdrawal, Reduction of target symptoms Discharge to:: Substance Abuse Rehab - Treatment Team Participation Discussed with Family/SO: No Was Patient/Family/SO present at Treatment Team Meeting: Yes
[2017-10-11] MEDS: buPROPion 150 mg/24 Hours XL Tab PO SCH (09:44)
[2017-10-11] MEDS: Methadone 40 mg Tab PO SCH (10:45)
--- NOTE | 2017-10-11 21:26 | RAD ---
PROCEDURE: Right Foot Radiographs. HISTORY: Limping and pain COMPARISON: None available. FINDINGS: BONES: Acute oblique fracture of the proximal 5th metatarsal with intra-articular extension. JOINTS: No dislocation. SOFT TISSUES: Question soft tissue ulceration to the mid calcaneus on lateral view. Correlate with physical exam. No evidence of radiopaque foreign body. OTHER FINDINGS: None. IMPRESSION: Acute oblique fracture of the proximal 5th metatarsal with intra-articular extension. Question soft tissue ulceration to the mid calcaneus on lateral view. Correlate with physical exam. Findings discussed with patient's BEATA Hooper on 10/11/17 at 9:19 p.m.
[2017-10-12] MEDS: Methadone 40 mg Tab PO SCH (09:24)
[2017-10-12] MEDS: buPROPion 150 mg/24 Hours XL Tab PO SCH (09:25)
--- NOTE | 2017-10-12 16:31 | CP.PCM.CON ---
History of Present Illness - History of Present Illness History of Present Illness: Orthopedic consult note for Dr. Flowers: 32 y/o male seen at bedside in psych with pmhx of Anxiety, Depression, Hepatitis (C). Patient states that he has been having pain in his right foot ever since he fell off a step a few weeks ago and felt his foot twist inward. Patient states that he has been walking on his foot since the injury but complains of 8/10 pain today. Patient denies any other trauma at this time. Patient denies any other pedal complaints at this time. Denies n/f/v/d/c/sob. Review of Systems - Constitutional Constitutional: As Per HPI Past Patient History - Infectious Disease Hx of Infectious Diseases: None - Past Social History Smoking Status: Light Smoker < 10 Cigarettes Daily - CARDIAC Hx Cardiac Disorders: No Hx Hypertension: No - PULMONARY Hx Tuberculosis: No - NEUROLOGICAL HX Cerebrovascular Accident: No Hx Seizures: No - HEENT Hx HEENT Problems: No - RENAL Hx Chronic Kidney Disease: No - ENDOCRINE/METABOLIC Hx Endocrine Disorders: No - HEMATOLOGICAL/ONCOLOGICAL Hx Cancer: No Hx Human Immunodeficiency Virus (HIV): No - INTEGUMENTARY Hx Dermatological Problems: No - MUSCULOSKELETAL/RHEUMATOLOGICAL Hx Musculoskeletal Disorders: No - GASTROINTESTINAL Hx Gastrointestinal Disorders: No - GENITOURINARY/GYNECOLOGICAL Hx Sexually Transmitted Disorders: No - PSYCHIATRIC Hx Substance Use: Yes (Methadone) - SURGICAL HISTORY Hx Surgeries: Yes Other/Comment: left elbow surgery - ANESTHESIA Hx Anesthesia: Yes Hx Anesthesia Reactions: No Meds Allergies/Adverse Reactions: Allergies Allergy/AdvReac Type Severity Reaction Status Date / Time FISH Allergy RASH Verified 10/11/17 01:42 turkey Allergy RASH Verified 10/11/17 01:42 - Medications Medications: Current Medications Acetaminophen (Tylenol 325mg Tab) 650 mg PO Q6 PRN PRN Reason: Pain Last Admin: 10/11/17 12:27 Dose: 650 mg Aripiprazole (Abilify) 10 mg PO DAILY LOIDA Last Admin: 10/12/17 09:25 Dose: 10 mg Bupropion HCl (Wellbutrin Xl) 150 mg PO DAILY LOIDA Last Admin: 10/12/17 09:25 Dose: 150 mg Chlorpromazine (Thorazine) 25 mg PO Q6H PRN PRN Reason: Hiccups Hydroxyzine HCl (Atarax) 25 mg PO Q6 PRN PRN Reason: Anxiety Methadone HCl (Methadose) 40 mg PO DAILY [facility] Last Admin: 10/12/17 09:24 Dose: 40 mg Methadone HCl (Methadone) 30 mg PO DAILY [facility] Last Admin: 10/12/17 09:25 Dose: 30 mg Methadone HCl (Methadone) 5 mg PO DAILY [facility] Last Admin: 10/12/17 09:25 Dose: 5 mg Mirtazapine (Remeron) 30 mg PO HS [facility] Last Admin: 10/11/17 21:27 Dose: 30 mg Pneumococcal Polyvalent Vaccine (Pneumovax 23 Vaccine) 0.5 ml IM .ONCE ONE Stop: 10/13/17 10:01 Physical Exam - Constitutional Appears: Well, Non-toxic, No Acute Distress - Extremities Exam Additional comments: right lower extremity focused: Vasc; palpable DP and PT pulses 2/4, TG wnl, CFT < 3 sec to all digits neuro: grossly intact derm: no edema, no echymoses, no erythema, no open lesions, no acute clinical signs of infection ortho: pain on palpation of base of 5th metatarsal, pain on muscle ROM and pain on eversion and plantarflexion - Neurological Exam Neurological exam: Alert, Oriented x3 Results - Vital Signs Recent Vital Signs: Last Vital Signs Temp 97.5 F L 10/12/17 09:00 Pulse 68 10/12/17 09:00 Resp 18 10/12/17 09:00 BP 121/85 10/12/17 09:00 Pulse Ox 100 10/11/17 05:57 - Labs Result Diagrams: 10/11/17 02:01 10/11/17 02:01 Assessment & Plan - Assessment and Plan (Free Text) Assessment: 32 y/o male with pmhx of Anxiety, Depression, Hepatitis (C), seen at bedside in psych for right foot 5th metatarsal base fracture Plan: patient evaluated and chart reviewed discussed in detail with attending Dr. Flowers labs and vitals reviewed; afebrile x rays of right foot reviewed and show intra-articular base fracture of 5th metatarsal Rx CAM boot patient to remain in protective weightbearing to right foot patient instructed to follow up with Dr. Flowers on outpatient basis Thank you for the consultation.
--- NOTE | 2017-10-13 02:09 | PCM.PSYCH ---
Initial Psychiatric Evaluation - Initial Psychiatric Evaluation Legal Status: Capacity Chief Complaint (in patient's own words): I THINK THAT MY MEDS ARE MAKING ME MORE DEPRESSED AND SUICIDAL Patient's Reaction to Hospitalization: I;M GLAD I CAN GET MY MEDS STRAIGHTENED OUT BEFORE I GO TO [facility] History of Present Illness and Precipitating Events: PT IS A33 YEAR OLD LIVING UNEMPLOYED MALE LIVING WITH HIS 4 MONTH 0LD AND MOTHER OF THE CHILD. PT IS ON 75 MG A DAY OF METHADONE FROM AN MMTP PROGRAM. PT HAS 4 OTHER CHILDREN BY 2 DIFFERENT WOMEN. HIS FATHER WAS MURDERED WHEN WHEN PT WAS 10 YEARS OLD. PT'S MOTHER IS STILL ALIVE, SHE REMARRIED. PT HAS 2 OLDER SISTERS AND ONE YOUNGER BROTHER. FATHER WAS BIPOLAR AND ABUSED ALCOHOL. PT HAS HEPATITIS C. PT IS ALSO LIMPING. PT HAS BEEN IN STATE DETENTION FOR A TOTAL OF 7 YEARS BUT NOT CONTINUALLY. HE WAS INCARCERATED BECAUSE OF CHARGES OF BURGLARY AND CREDIT CARD FRAUD. PT HAS BEEN HOSPITALIZED FOR DEPRESSION AND SUICIDAL IDEATION BEGINNING ABOUT 5 YEARS AGO. HE HAS BEEN AT [facility] AND [facility] PT HAS BEEN ON ZOLOFT, LEXAPRO, DEPAKOTE LAMICTRAL , SEROQUEL AMONG OTHERS. PT USED 75 -100 BAGS OF HEROIN A DAY. HE ALSO USED COCAINE. HE STATED HE WOULD LIE CHEAT AND DO ANY THING TO GET THE MONEY FOR HIS DRUGS. PT ALSO STATED HE HAD BEEN AWARDED 500,000 DOLLARS IN A LAW SUIT AND HE RAN THREW THAT , PT HAS BEEN AT DETOX AT [facility] AND [facility]. HE HAS BEEN AT [facility] FOR [facility] ON MMTP FOR ABOUT 5 MONTHS Current Medications: Active Medications Generic Name Dose Route Start Last Admin Trade Name Freq PRN Reason Stop Dose Admin Acetaminophen 650 mg 10/11/17 06:52 10/11/17 12:27 Tylenol 325mg Tab PO 650 mg Q6 PRN Administration Pain Aripiprazole 10 mg 10/11/17 16:15 10/12/17 09:25 Abilify PO 10 mg DAILY LOIDA Administration Bupropion HCl 150 mg 10/11/17 10:00 10/12/17 09:25 Wellbutrin Xl PO 150 mg DAILY LOIDA Administration Chlorpromazine 25 mg 10/12/17 14:30 10/12/17 23:39 Thorazine PO 25 mg Q6H PRN Administration Hiccups Hydroxyzine HCl 25 mg 10/11/17 06:54 Atarax PO Q6 PRN Anxiety Methadone HCl 40 mg 10/11/17 10:30 10/12/17 09:24 Methadose PO 40 mg DAILY LOIDA Administration Methadone HCl 30 mg 10/11/17 10:30 10/12/17 09:25 Methadone PO 30 mg DAILY LOIDA Administration Methadone HCl 5 mg 10/11/17 10:30 10/12/17 09:25 Methadone PO 5 mg DAILY LOIDA Administration Mirtazapine 30 mg 10/11/17 22:00 10/12/17 21:17 Remeron PO 30 mg HS LOIDA Administration Pneumococcal Polyvalent Vaccine 0.5 ml 10/13/17 10:00 Pneumovax 23 Vaccine IM 10/13/17 10:01 .ONCE ONE Past Psychiatric History - Past Psychiatric History Prior Professional Help: SEE HPI Pertinent Medical Hx (Current Medical&Sleep Prob, Allergies): Allergies Allergy/AdvReac Type Severity Reaction Status Date / Time FISH Allergy RASH Verified 10/11/17 01:42 turkey Allergy RASH Verified 10/11/17 01:42 clonazePAM [clonAZEPAM] 1 mg PO BID 04/10/17 Methadone [Methadose] 80 mg PO DAILY 09/25/17 Divalproex [Depakote DR] 500 mg PO BID #60 tcp 09/29/17 Gabapentin [Neurontin] 300 mg PO BID #60 cap 09/29/17 Mirtazapine [Remeron] 30 mg PO HS #30 tab 09/29/17 traZODone [Desyrel] 100 mg PO HS PRN #30 tab 09/29/17 Review of Systems - Constitutional Constitutional: Malaise - EENT Eyes: UNREMARKABLE Ears: UNREMARKABLE Nose/Mouth/Throat: UNREMARKABLE - Cardiovascular Cardiovascular: UNREMARKABLE - Respiratory Respiratory: UNREMARKABLE - Gastrointestinal Gastrointestinal: UNREMARKABLE - Genitourinary Genitourinary: Hx Renal/Bladder Calculi, UNREMARKABLE - Reproductive: Male Reproductive:Male: UNREMARKABLE - Musculoskeletal Musculoskeletal: Abnormal Gait, Limited Range of Motion, Muscle Cramps, Stiffness - Integumentary Integumentary: UNREMARKABLE - Neurological Neurological: Abnormal Gait, Behavioral Changes - Psychiatric Psychiatric: Anxiety, Change in Appetite, Depression, Suicidal Ideation - Endocrine Endocrine: UNREMARKABLE - Hematologic/Lymphatic Hematologic: UNREMARKABLE Mental Status Examination - Personal Presentation Personal Presentation: Looks stated age - Affect Affect: Broad - Motor Activity Motor Activity: Calm - Reliability in Providing Information Reliability in Providing Information: Good - Speech Speech: Organized - Mood Mood: Depressed, Anxious - Formal Thought Process Formal Thought Process: No Impairment - Cognitive Functions Orientation: Person, Place, Situation, Time Sensorium: Alert Attention/Concentration: Attentive Abstract Thinking: As evidence by abstract perception of proverbs Estimate of Intelligence: Above Average Judgement: Intact, as evidence by: Good judgement Memory: Recent intact, as evidence by: Ability to recall events of the day, Remote intact, as evidenced by: Abilit to recall sig. life events - Risk Risk: Suicidal - Strength & Assets Inventory Strength & Assets Inventory: Intelligence, Family support, Cooperative DSM 5 DX - DSM 5 DSM 5 Diagnosis: MAJOR DEPRESSIVE DISORDER RECURRENT SEVERE WITHOUT PSYCHOTIC FEATURE R/O BIPOLAR DISORDER ABILIFRadha AND WELLBUTRIN GROUP MILIEU AND RECREATIONAL THERAPY INDIVIDUAL PSYCHOTHERAPY OPIOID USEV DISORDER SEVERE ON MEDICATION ASSISTANCE THERAPY METHADONE FOOT PAIN AND LIMP X RAY - Recommended/Plan of Treatment Treatment Recommendations and Plan of Treatment: SEE ABOVE Projected ELOS: 7 DAYS Prognosis: GOOD WITH CONTINUED TREATMENT Discharge Plan and Discharge Criteria: [facility] - Smoking Cessation Smoking Cessation Initiated: No
--- NOTE | 2017-10-13 02:38 | PCM.PYCHPN ---
Psychiatric Progress Note - Psychiatric Progress Note Patient Chief Complaint: I THREW UP MY MEDS, HAVE THE HICCUPS AND FEEL MISERABLE Problems Identified/Issues Discussed: HICCUPS MANAGEMENT OF DEPRESSIVE SYMPTOMS Medical Problems: FACTURE OF METATARSAL Diagnostic Results: XRAY OF RIGHT FOOT SHOWING FRACTURE DSM 5 Symptoms Update: ANXIETY Medication Change: Yes (THORAZINE FOR HICCUPS) Medical Record Reviewed: Yes Consults ordered or reviewed: ORTHOPEDIC CONSULT USE A BOOT UNTIL ARRIVES NO WEIGHT BEARING USE WHEELCHAIR Mental Status Examination - Cognitive Function Orientation: Person, Place, Situation Memory: Intact Attention: WNL Concentration: Poor Association: WNL Fund of Knowledge: WNL - Mood Mood: Depressed, Anxious - Speech Speech: Appropriate - Formal Thought Process Formal Thought Process: No Impairment Goal/Treatment Plan - Goal/Treatment Plan Need for Continued Stay: Discharge may exacerbated symptoms Progress Toward Problem(s) and Goals/Treatment Plan: MMD ABILIFY WELLBUTRIN NH CBT SUPPORTIVE PSYCHOTHERAPY OPIOID USE DISORDER OM MAT WITH METHADONE FOOT FRACTURE BOOT HICCUPS THORAZINE PRN Estimated Date of D/C: 10/17/17 - Smoking Cessation Smoking Cessation Initiated: No
[2017-10-13 05:44] VITALS: RESP 20; TEMP 97.9
[2017-10-13] MEDS ORDERED: Influenza Vaccine 60 mcg/0.5 mL SYR (4YR UP) IM ONE (10:00)
[2017-10-13] MEDS ORDERED: Pneumococcal 23-Valent Vaccine IM ONE (10:00)
[2017-10-13] MEDS: Methadone 40 mg Tab PO SCH (11:29)
[2017-10-13] MEDS: buPROPion 150 mg/24 Hours XL Tab PO SCH (11:38)
--- NOTE | 2017-10-13 13:58 | PCM.PYCHPN ---
Psychiatric Progress Note - Psychiatric Progress Note Patient seen today, length of contact: 15 min Patient Chief Complaint: "I feel good" Problems Identified/Issues Discussed: The pt is seen, chart reviewed, case discussed with staff. The pt is compliant with medications and reports no side-effects. Symptoms improving and patient needs more time to stabilize. After care discussed, support and psychoeducation given. At the time of evaluation patient was awake alert oriented 3, had no delusions , no auditory or visual hallucinations, no suicidal ideations or homicidal ideations. Medical Problems: None reported Diagnostic Results: Reviewed DSM 5 Symptoms Update: Some improvement with treatment Medication Change: No Medical Record Reviewed: Yes Consults ordered or reviewed: Reviewed Mental Status Examination - Cognitive Function Orientation: Person, Place, Situation, Time Memory: Intact Attention: WNL Concentration: WNL Association: WNL Fund of Knowledge: [facility] Decription of patient's judgement and insights: Fair - Mood Mood: Neutral - Affect Affect: Other (Appropriate) - Speech Speech: Appropriate - Formal Thought Process Formal Thought Process: No Impairment Psychotic Thoughts and Behaviors: None - Suicidal Ideation Suicidal Ideation: No - Homicidal Ideation Homicidal Ideation: No Goal/Treatment Plan - Goal/Treatment Plan Need for Continued Stay: Remain at risks for inpatient hospitalization, Discharge may exacerbated symptoms, Severe functional impairment Progress Toward Problem(s) and Goals/Treatment Plan: Continue medications Support and psychoeducation daily Attend groups and activities daily Patient will go to [facility] for follow-up. After discharge from the hospital. Estimated Date of D/C: 10/15/17 - Smoking Cessation Smoking Cessation Initiated: No
[2017-10-13] MEDS ORDERED: Vitamins A & D Oint UD Foilpak TOP PRN (15:55)
[2017-10-14 09:21] VITALS: BP 112/63; PULSE 84
[2017-10-14] MEDS: Methadone 40 mg Tab PO SCH (10:23)
[2017-10-14] MEDS: buPROPion 150 mg/24 Hours XL Tab PO SCH (10:24)
--- NOTE | 2017-10-15 14:41 | PCM.PYCHDC ---
Mental Status Examination - Mental Status Examination Orientation: Person, Place, Situation, Time Memory: Intact Mood: Neutral Affect: Other (Appropriate) Speech: Soft Attention: WNL Concentration: WNL Association: WNL Fund of Knowledge: WNL Formal Thought Process: No Impairment Description of patient's judgement and insight: Fair Psychotic Thoughts and Behaviors: None Suicidal Ideation: No Current Homicidal Ideation?: No Discharge Summary - Discharge Note Reason for Hospitalization: Depression Opiates Cocaine Laboratory Data: Reviewed Consultations:: List each consultation separately and include: 1. Reason for request. 2. Findings. 3. Follow-up Consultations: Reviewed Summary of Hospital Course include:: 1. Description of specific treatment plan utilized for patients during their course of treatmen. 2. Summarize the time- course for resolution of acute symptoms and/or regressed behaviors. 3. Describe issues identified and worked on during hospitalization. 4. Describe medication utilized. 5. Describe medical problems identified and treated. 6. 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 PT IS ON 75 MG A DAY OF METHADONE FROM AN MMTP PROGRAM. PT HAS 4 OTHER CHILDREN BY 2 DIFFERENT WOMEN. HIS FATHER WAS MURDERED WHEN WHEN PT WAS 10 YEARS OLD. PT'S MOTHER IS STILL ALIVE, SHE REMARRIED. PT HAS 2 OLDER SISTERS AND ONE YOUNGER BROTHER. FATHER WAS BIPOLAR AND ABUSED ALCOHOL. PT HAS HEPATITIS C. PT IS ALSO LIMPING. PT HAS BEEN IN STATE HALF-WAY FOR A TOTAL OF 7 YEARS BUT NOT CONTINUALLY. HE WAS INCARCERATED BECAUSE OF CHARGES OF BURGLARY AND CREDIT CARD FRAUD. PT HAS BEEN HOSPITALIZED FOR DEPRESSION AND SUICIDAL IDEATION BEGINNING ABOUT 5 YEARS AGO. HE HAS BEEN AT [facility]. PT HAS BEEN ON ZOLOFT, LEXAPRO, DEPAKOTE LAMICTRAL , SEROQUEL AMONG OTHERS. PT USED 75 -100 BAGS OF HEROIN A DAY. HE ALSO USED COCAINE. HE STATED HE WOULD LIE CHEAT AND DO ANY THING TO GET THE MONEY FOR HIS DRUGS. PT ALSO STATED HE HAD BEEN AWARDED 500,000 DOLLARS IN A LAW SUIT AND HE RAN THREW THAT , PT HAS BEEN AT DETOX AT [facility] AND [facility]. HE HAS BEEN AT [facility] ON MMTP FOR ABOUT 5 MONTHS During his stay in the hospital patient was treated with mirtazapine, aripiprazole, trazodone, Wellbutrin and other when necessary medications. Patient's methadone dose was confirmed and was given today patient. Today patient was stable, ready for discharge, bed was available to [facility]. At the time of evaluation and discharge, patient was awake alert oriented 3, had no delusions, no auditory or visual hallucinations, no suicidal ideations or homicidal ideations. Patient was discharged in a stable condition. - Final Diagnosis (DSM 5) Condition upon Discharge: FAIR Disposition: HOME/ ROUTINE Follow-up Treatment Plan: Patient will go to [facility] for follow-up. After discharge from the hospital. Prescriptions/Medication Reconciliation: ARIPiprazole [Abilify] 10 mg PO DAILY #30 tab buPROPion XL [Wellbutrin XL] 150 mg PO DAILY #30 t24 Mirtazapine [Remeron] 30 mg PO HS #30 tab Mirtazapine [Remeron] 30 mg PO HS #30 tab traZODone [Desyrel] 100 mg PO HS PRN #30 tab PRN Reason: Insomnia traZODone [Desyrel] 100 mg PO HS #30 tab - Smoking Cessation Smoking Cessation Medication prescribed: No - Antipsychotic Medications Pt discharged on 2 or more routine antipsychotic medications: No
== END 2017-10-14 10:55 | disposition home or self-care (01) | DRG 430 ==
LOC: C.ER 01:09 → C.5E 05:37
PROVIDERS: ADMIT Psychiatry & Neurology Psychiatry; ATTEND Psychiatry & Neurology Psychiatry
PROC: GZHZZZZ Group Psychotherapy (ICD-10-PCS; principal; 2017-10-11)
PROC: GZ56ZZZ Individual Psychotherapy, Supportive (ICD-10-PCS; 2017-10-11)
DX: F33.2 Major depressive disorder, recurrent severe without psychotic features (principal); R45.851 Suicidal ideations; F11.20 Opioid dependence, uncomplicated; B19.20 Unspecified viral hepatitis C without hepatic coma; W10.9XXA Fall (on) (from) unspecified stairs and steps, initial encounter; F41.9 Anxiety disorder, unspecified; F17.210 Nicotine dependence, cigarettes, uncomplicated; S92.354A Nondisplaced fracture of fifth metatarsal bone, right foot, initial encounter for closed fracture

== ENCOUNTER 2017-11-11 18:38 | Inpatient (IN) | payer MEDICAID, OTHER ==
[2017-11-11 18:38] VITALS: BMI 25.8
[2017-11-11 18:54] VITALS: O2SAT 97
--- NOTE | 2017-11-12 00:21 | PCM.BM ---
<Jacinto Young - Last Filed: 11/12/17 00:11> Treatment Plan Problems - Problems identified on initial assessmt DEPRESSION Date Initiated: 11/12/17 Time Initiated: 00:00 Assessment reference: NA Status: Active SUICIDAL IDEATION Date Initiated: 11/12/17 Time Initiated: 00:00 Assessment reference: NA Status: Active SUBSTANCE ABUSE Date Initiated: 11/12/17 Time Initiated: 00:00 Assessment reference: NA Status: Active Treatment assets and liabiliti Patient Assests: cooperative, insightful, resourceful, self-reliant, ADL independent, good support system, negotiates basic needs, cognitively intact Patient Liabilities: financial problems, substance abuse, medical problems - Milieu Protocol Maintain good personal hygiene: daily Encourage regular showers, daily Remind patient to perform daily oral care, daily Assist patient to perform ADL's Maintain personal safety: every shift Educate patient to report safety concerns to staff, every shift Monitor environment for contraband/sharps Medication safety: Monitor for expected outcome, potential side effects: every shift, Assess barriers to learning: every shift, Assess readiness for medication education: every shift <Richard Rizo - Last Filed: 11/12/17 11:01> - Diagnosis (1) Bipolar mixed affective disorder, moderate Status: Acute Interventions: 11/12/17 11:01 * Assess/adjust medications daily and /or as needed * See patient on an individual basis 7x/week to assess level of manic behaviors and stability * Discuss risks, benefits, side effects and alternatives of medications * (2) Opioid use disorder, severe, dependence Status: Acute Interventions: 11/12/17 11:02 * Assess 7x/week regarding severity of withdrawal * Educate regarding risks, benefits, side effects and alternatives of medications * Use Motivational Interviewing for abstinence * Use CBT for relapse prevention * Medication management for withdrawal symptoms * Encourage medication assisted treatment * <Radha Vang - Last Filed: 11/12/17 15:04> Family Contact Family involvement: Patient does not wish Family/SO involvement Family contact: Patient declines to allow family contact at present - Goals for Treatment Patient goals for treatment: " I do not know what type of treatment I want." Discharge/Continuing Care - Education Needs Education Needs: Patient Medication, Patient Coping Skills, Patient Aftercare Safety Plan - Discharge Discharge Criteria: Normal sleep pattern, Ability to care for self, No longer exhibiting s/s of withdrawal, Reduction of target symptoms Discharge to:: Other - Treatment Team Participation Was Patient/Family/SO present at Treatment Team Meeting: Yes <Malgorzata Maynard - Last Filed: 11/14/17 11:02> Discharge/Continuing Care - Education Needs Education Needs: Patient Medication, Patient Coping Skills - Discharge Discharge Criteria: Tolerates medication w/o severe side effects Discharge to:: Home - Treatment Team Participation Discussed with Family/SO: No Was Patient/Family/SO present at Treatment Team Meeting: Yes
[2017-11-12 09:15] LABS: URINE COLOR AMBER (YELLOW)
[2017-11-12 09:16] LABS: URINE BILIRUBIN NEGATIVE (NEGATIVE); URINE CLARITY Hazy (Clear); URINE GLUCOSE (UA) Normal (Normal)
[2017-11-12 09:17] LABS: URINE BLOOD NEGATIVE (NEGATIVE); URINE LEUKOCYTE ESTERASE Negative Leu/uL (Negative); URINE PROTEIN NEGATIVE (NEGATIVE); URINE UROBILINOGEN Normal mg/dL (0.2-1.0)
[2017-11-12 09:18] LABS: URINE BACTERIA RARE (<OCC)
[2017-11-12 09:19] LABS: ACETAMINOPHEN < 10.0 ug/mL (10.0-30.0); BARBITURATES, UR NEGATIVE (NEGATIVE); BENZODIAZEPINES, UR NEGATIVE (NEGATIVE); OPIATES, UR POSITIVE (NEGATIVE); PHENCYCLIDINE, UR NEGATIVE (NEGATIVE); SALICYLATE < 1.0 mg/dL 1
[2017-11-12 09:20] LABS: BLOOD UREA NITROGEN 22 mg/dL (9-20); GFR AFRICAN-AMERICAN > 60; GFR NON-AFRICAN AMERICAN > 60; HEMOGLOBIN 12.9 g/dL (12.0-18.0); MEAN CELL VOLUME 87.9 fL (80.0-94.0); MEAN CORPUSCULAR HEMOGLOBIN 30.3 pg (27.0-31.0); MEAN CORPUSCULAR HGB CONC 34.5 g/dL (33.0-37.0); MEAN PLATELET VOLUME 9.2 fL (7.2-11.7); RBC 4.26 Mil/uL (4.40-5.90); RED CELL DISTRIBUTION WIDTH 13.9 % (11.5-14.5); WHITE BLOOD COUNT 8.6 K/uL (4.8-10.8)
[2017-11-12 09:21] LABS: CALCIUM 9.1 mg/dl (8.6-10.4)
[2017-11-12 09:22] LABS: ALB/GLOB RATIO 1.1 (1.0-2.1); ALBUMIN 3.7 g/dL (3.5-5.0); ALT/SGPT 167 U/L (21-72); AST/SGOT 113 U/L (17-59)
[2017-11-12] MEDS: buPROPion 150 mg/24 Hours XL Tab PO SCH (09:58)
[2017-11-12] MEDS ORDERED: Aluminum Hydroxide/Magnesium Hydroxide Susp (30 mL) PO PRN (10:55)
--- NOTE | 2017-11-12 10:55 | PCM.PSYCH ---
Initial Psychiatric Evaluation - Initial Psychiatric Evaluation Type of Admission: Voluntary Legal Status: Capacity Chief Complaint (in patient's own words): I was feeling depressed and suicidal.' History of Present Illness and Precipitating Events: Patient is a 32 yo CM, with h/o bipolar disorder, opioid use disorder, cocaine use disorder and cannabis use disorder, came to the ED with depressed mood and suicidal ideation. Automobile Mechanic Assistant is familiar with this patient. Patient was just discharged from [facility] almost 1 month ago. As per the patient, he was going to a Methadone program and was on 80 mg of Methadone, but he kicked out from the program because of dirty urine. Since then he is abusing more than 10 bags daily. He relapsed on cocaine and cannabis as well. Yesterday he injected almost 12 bags of heroin with $10 cocaine, became increasingly depressed, and developed suicidal ideation, so he came to the hospital to get help. He reports depressed mood, feelings of hopelessness, helplessness and worthlessness. He also reports poor sleep and poor appetite. He denies any auditory or visual hallucinations or any paranoia. He reports withdrawal symptoms including nausea, cramps, anxiety, sweating and headaches. PMH None reported Current Medications: Active Medications Generic Name Dose Route Start Last Admin Trade Name Freq PRN Reason Stop Dose Admin Aripiprazole 10 mg 11/12/17 10:00 11/12/17 09:58 Abilify PO 10 mg DAILY LOIDA Administration Bupropion HCl 150 mg 11/12/17 10:00 11/12/17 09:58 Wellbutrin Xl PO 150 mg DAILY LOIDA Administration Mirtazapine 30 mg 11/12/17 22:00 Remeron PO HS [facility] Past Psychiatric History - Past Psychiatric History Previous Treatment History: Inpatient Pertinent Medical Hx (Current Medical&Sleep Prob, Allergies): Allergies Allergy/AdvReac Type Severity Reaction Status Date / Time FISH Allergy RASH Verified 10/11/17 01:42 turkey Allergy RASH Verified 10/11/17 01:42 ARIPiprazole [Abilify] 10 mg PO DAILY #30 tab 10/14/17 Mirtazapine [Remeron] 30 mg PO HS #30 tab 10/14/17 buPROPion XL [Wellbutrin XL] 150 mg PO DAILY #30 t24 10/14/17 Review of Systems - Review of Systems All systems: reviewed and no additional remarkable complaints except - Psychiatric Psychiatric: Anxiety, Irritability, Suicidal Ideation Mental Status Examination - Personal Presentation Personal Presentation: Looks stated age - Affect Affect: Constricted, Depressed - Motor Activity Motor Activity: Calm - Reliability in Providing Information Reliability in Providing Information: Good - Speech Speech: Organized - Mood Mood: Depressed, Anxious - Formal Thought Process Formal Thought Process: No Impairment - Obsessions/Compulsions Obsessions: No Compulsions: No - Cognitive Functions Orientation: Person, Place, Situation, Time Sensorium: Alert Attention/Concentration: Attentive Abstract Thinking: [place] Estimate of Intelligence: Below average Judgement: Imparied, as evidence by: Poor judgement, Imparied, as evidence by: Lack of insight into illness - Risk Risk: Suicidal, Diminished functioning - Limitations Limitations: Living alone DSM 5 DX - DSM 5 DSM 5 Diagnosis: Bipolar disorder depressed severe without psychotic features Opioid use disorder severe Opioid Withdrawal Cocaine use disorder severe Cannabis use disorder moderate - Recommended/Plan of Treatment Treatment Recommendations and Plan of Treatment: Bipolar disorder depressed severe without psychotic features -CBT -Psychoeducation -Supportive therapy, group therapy, individual therapy -Abilify 10 mg -Mirtazapine 30 MG -Trazodone 50 mg Opioid use disorder severe -CBT -Psychoeducation -Supportive therapy, individual therapy -Use SD for abstinence Opioid withdrawal -CBT -Psychoeducation -Supportive therapy, individual therapy -Clonidine when necessary -Methadone taper Cocaine use disorder severe -Monitor signs and symptoms -Use SD for abstinence Cannabis use disorder moderate -Monitor signs and symptoms -Use SD for abstinence - Smoking Cessation Smoking Cessation Initiated: No
[2017-11-13] MEDS: buPROPion 150 mg/24 Hours XL Tab PO SCH (09:08)
--- NOTE | 2017-11-13 23:51 | PCM.PYCHPN ---
Psychiatric Progress Note - Psychiatric Progress Note Patient Chief Complaint: I was feeling depressed and suicidal.' Mental Status Examination - Cognitive Function Orientation: Person, Place, Situation, Time - Mood Mood: Depressed, Anxious - Affect Affect: Constricted, Depressed - Formal Thought Process Formal Thought Process: No Impairment Goal/Treatment Plan - Goal/Treatment Plan Progress Toward Problem(s) and Goals/Treatment Plan: Bipolar disorder depressed severe without psychotic features -CBT -Psychoeducation -Supportive therapy, group therapy, individual therapy -Abilify 10 mg -Mirtazapine 30 MG -Trazodone 50 mg Opioid use disorder severe -CBT -Psychoeducation -Supportive therapy, individual therapy -Use GA for abstinence Opioid withdrawal -CBT -Psychoeducation -Supportive therapy, individual therapy -Clonidine when necessary -Methadone taper Cocaine use disorder severe -Monitor signs and symptoms -Use GA for abstinence Cannabis use disorder moderate -Monitor signs and symptoms -Use GA for abstinence
[2017-11-14 07:21] VITALS: RESP 18; TEMP 98.1
[2017-11-14 08:49] VITALS: BP 108/71; PULSE 64
[2017-11-14] MEDS: buPROPion 150 mg/24 Hours XL Tab PO SCH (10:14)
--- NOTE | 2017-11-14 11:03 | PCM.PYCHDC ---
Mental Status Examination - Mental Status Examination Orientation: Person, Place, Situation, Time Memory: Intact Mood: Neutral Attention: WNL Concentration: WNL Association: WNL Fund of Knowledge: WNL Formal Thought Process: No Impairment Description of patient's judgement and insight: good, fair Psychotic Thoughts and Behaviors: denies any AVH Suicidal Ideation: No Current Homicidal Ideation?: No Discharge Summary - Discharge Note Reason for Hospitalization: Patient is a 32 yo CM, with h/o bipolar disorder, opioid use disorder, cocaine use disorder and cannabis use disorder, came to the ED with depressed mood and suicidal ideation. Litigation Partner is familiar with this patient. Patient was just discharged from [facility] almost 1 month ago. As per the patient, he was going to a Methadone program and was on 80 mg of Methadone, but he kicked out from the program because of dirty urine. Since then he is abusing more than 10 bags daily. He relapsed on cocaine and cannabis as well. Yesterday he injected almost 12 bags of heroin with $10 cocaine, became increasingly depressed, and developed suicidal ideation, so he came to the hospital to get help. He reports depressed mood, feelings of hopelessness, helplessness and worthlessness. He also reports poor sleep and poor appetite. He denies any auditory or visual hallucinations or any paranoia. He reports withdrawal symptoms including nausea, cramps, anxiety, sweating and headaches. PMH None reported Consultations:: List each consultation separately and include: 1. Reason for request. 2. Findings. 3. Follow-up Summary of Hospital Course include:: 1. Description of specific treatment plan utilized for patients during their course of treatmen. 2. Summarize the time- course for resolution of acute symptoms and/or regressed behaviors. 3. Describe issues identified and worked on during hospitalization. 4. Describe medication utilized. 5. Describe medical problems identified and treated. 6. Reassessment of suicide risk Summary of Hospital Course: Patient is a 32 yo CM, with h/o bipolar disorder, opioid use disorder, cocaine use disorder and cannabis use disorder, came to the ED with depressed mood and suicidal ideation. Litigation Partner is familiar with this patient. Patient was just discharged from [facility] almost 1 month ago. As per the patient, he was going to a Methadone program and was on 80 mg of Methadone, but he kicked out from the program because of dirty urine. Since then he is abusing more than 10 bags daily. He relapsed on cocaine and cannabis as well. Yesterday he injected almost 12 bags of heroin with $10 cocaine, became increasingly depressed, and developed suicidal ideation, so he came to the hospital to get help. He reports depressed mood, feelings of hopelessness, helplessness and worthlessness. He also reports poor sleep and poor appetite. He denies any auditory or visual hallucinations or any paranoia. He reports withdrawal symptoms including nausea, cramps, anxiety, sweating and headaches. PMH None reported - Diagnosis (1) Bipolar mixed affective disorder, moderate Current Visit: No Status: Acute (2) Opioid use disorder, severe, dependence Current Visit: No Status: Acute - Final Diagnosis (DSM 5) Condition upon Discharge: GOOD Disposition: HOME/ ROUTINE Follow-up Treatment Plan: Bipolar disorder depressed severe without psychotic features -CBT -Psychoeducation -Supportive therapy, group therapy, individual therapy -Abilify 10 mg -Mirtazapine 30 MG -Trazodone 50 mg Opioid use disorder severe -CBT -Psychoeducation -Supportive therapy, individual therapy -Use TN for abstinence Opioid withdrawal -CBT -Psychoeducation -Supportive therapy, individual therapy -Clonidine when necessary -Methadone taper Cocaine use disorder severe -Monitor signs and symptoms -Use TN for abstinence Cannabis use disorder moderate -Monitor signs and symptoms -Use TN for abstinence Prescriptions/Medication Reconciliation: ARIPiprazole [Abilify] 10 mg PO DAILY #30 tab buPROPion XL [Wellbutrin XL] 150 mg PO DAILY #30 t24
== END 2017-11-14 11:30 | disposition home or self-care (01) | DRG 430 ==
LOC: C.ER 18:38 → C.5E 22:52
PROVIDERS: ADMIT Psychiatry & Neurology Psychiatry; ATTEND Psychiatry & Neurology Psychiatry
PROC: GZHZZZZ Group Psychotherapy (ICD-10-PCS; principal; 2017-11-11)
PROC: HZ2ZZZZ Detoxification Services for Substance Abuse Treatment (ICD-10-PCS; 2017-11-11)
PROC: HZ52ZZZ Individual Psychotherapy for Substance Abuse Treatment, Cognitive-Behavioral (ICD-10-PCS; 2017-11-11)
PROC: HZ59ZZZ Individual Psychotherapy for Substance Abuse Treatment, Supportive (ICD-10-PCS; 2017-11-11)
PROC: HZ56ZZZ Individual Psychotherapy for Substance Abuse Treatment, Psychoeducation (ICD-10-PCS; 2017-11-11)
PROC: HZ42ZZZ Group Counseling for Substance Abuse Treatment, Cognitive-Behavioral (ICD-10-PCS; 2017-11-11)
PROC: HZ46ZZZ Group Counseling for Substance Abuse Treatment, Psychoeducation (ICD-10-PCS; 2017-11-11)
PROC: GZ58ZZZ Individual Psychotherapy, Cognitive-Behavioral (ICD-10-PCS; 2017-11-11)
PROC: GZ56ZZZ Individual Psychotherapy, Supportive (ICD-10-PCS; 2017-11-11)
DX: F31.4 Bipolar disorder, current episode depressed, severe, without psychotic features (principal); F11.23 Opioid dependence with withdrawal; F14.20 Cocaine dependence, uncomplicated; F12.10 Cannabis abuse, uncomplicated; R45.851 Suicidal ideations

== ENCOUNTER 2018-01-20 20:18 | Inpatient (IN) | payer MEDICAID, OTHER ==
[2018-01-20 20:18] VITALS: BMI 25.8
[2018-01-20 20:51] LABS: SQUAMOUS EPITHIAL < 1 /hpf (0-5); URINE BILIRUBIN NEGATIVE (NEGATIVE); URINE BLOOD NEGATIVE (NEGATIVE); URINE CLARITY Hazy (Clear); URINE COLOR Amber (YELLOW); URINE GLUCOSE (UA) NORMAL (Normal); URINE LEUKOCYTE ESTERASE NEG Leu/uL (Negative); URINE PROTEIN NEGATIVE (NEGATIVE)
[2018-01-20 21:07] LABS: BASO % 0.4 % (0.0-2.0); EOS # 0.3 K/uL (0.0-0.7); EOS % 3.7 % (0.0-4.0); HEMOGLOBIN 13.2 g/dL (12.0-18.0); LYMPH # 3.2 K/uL (1.0-4.3); LYMPH % 44.1 % (20.0-40.0); MEAN CELL VOLUME 84.6 fL (80.0-94.0); MEAN CORPUSCULAR HEMOGLOBIN 29.5 pg (27.0-31.0); MEAN CORPUSCULAR HGB CONC 34.9 g/dL (33.0-37.0); MEAN PLATELET VOLUME 8.3 fL (7.2-11.7); MONO # 0.5 K/uL (0.0-0.8); MONO % 6.8 % (0.0-10.0); NEUT # 3.3 K/uL (1.8-7.0); NRBC % 0.2 % (0.0-2.0); RBC 4.48 Mil/uL (4.40-5.90); RED CELL DISTRIBUTION WIDTH 13.6 % (11.5-14.5); WHITE BLOOD COUNT 7.2 K/uL (4.8-10.8)
[2018-01-20 21:07] LABS: BARBITURATES, UR NEGATIVE (NEGATIVE); BENZODIAZEPINES, UR NEGATIVE (NEGATIVE); PHENCYCLIDINE, UR NEGATIVE (NEGATIVE)
[2018-01-20 21:08] LABS: OPIATES, UR POSITIVE (NEGATIVE)
[2018-01-20 21:14] LABS: ALB/GLOB RATIO 1.2 (1.0-2.1); ALT/SGPT 49 U/L (21-72); AST/SGOT 36 U/L (17-59); BLOOD UREA NITROGEN 20 mg/dL (9-20); CALCIUM 9.2 mg/dl (8.6-10.4); GFR AFRICAN-AMERICAN > 60; GFR NON-AFRICAN AMERICAN > 60
[2018-01-20 21:26] LABS: ACETAMINOPHEN < 10.0 ug/mL (10.0-30.0); SALICYLATE < 1.0 mg/dL 1
--- NOTE | 2018-01-20 23:53 | C.PDOC ---
Time Seen by Provider: 01/20/18 20:24 Chief Complaint (Nursing): Psychiatric Evaluation History Per: Patient Onset/Duration Of Symptoms: Days Current Symptoms Are (Timing): Still Present Modifying Factor(s): Narcotics, Cocaine Severity: Moderate Associated Symptoms: Depression Additional History Per: Prior Records Past Medical History Reviewed: Historical Data, Nursing Documentation, Vital Signs Vital Signs: Last Vital Signs Temp 98.9 F 01/20/18 23:33 Pulse 78 01/20/18 23:33 Resp 18 01/20/18 23:33 BP 104/64 01/20/18 23:33 Pulse Ox 98 01/20/18 23:54 - Medical History PMH: Anxiety, Bipolar Disorder, Depression, Hepatitis (C) - [facility] DETOXIFICATION SERVICES FOR SUBSTANCE ABUSE TREATMENT (11/11/17) GROUP DANCING INSTRUCTOR FOR SUBSTANCE ABUSE TREATMENT, PSYCHOEDUCATION (11/11/17) GROUP DANCING INSTRUCTOR FOR SUBSTANCE ABUSE, COGNITIVE BEHAVIORAL (11/11/17) GROUP PSYCHOTHERAPY (11/11/17) INDIV PSYCHOTHERAPY FOR SUBSTANCE ABUSE TREATMENT, SUPPORT (11/11/17) INDIV PSYCHOTHERAPY FOR SUBSTANCE ABUSE, COGNITIV BEHAVIORAL (11/11/17) INDIV PSYCHOTHERAPY FOR SUBSTANCE ABUSE, PSYCHOEDUCATION (11/11/17) INDIVIDUAL PSYCHOTHERAPY, COGNITIVE-BEHAVIORAL (11/11/17) INDIVIDUAL PSYCHOTHERAPY, SUPPORTIVE (11/11/17) MEDICATION MANAGEMENT (04/10/17) Family History: States: Unknown Family Hx - Social History Hx Tobacco Use: Yes Hx Alcohol Use: No Hx Substance Use: Yes (IVDU) - Immunization History Hx Tetanus Toxoid Vaccination: Yes Hx Influenza Vaccination: No Hx Pneumococcal Vaccination: No Review Of Systems Except As Marked, All Systems Reviewed And Found Negative. Constitutional: Negative for: Fever, Weakness Cardiovascular: Negative for: Chest Pain Respiratory: Negative for: Shortness of Breath Gastrointestinal: Negative for: Vomiting, Abdominal Pain Musculoskeletal: Negative for: Neck Pain Neurological: Negative for: Weakness, Numbness Psych: Positive for: Psychosis Physical Exam - Physical Exam Appears: Non-toxic, No Acute Distress Skin: Normal Color, Warm, Dry Head: Atraumatic, Normacephalic Eye(s): bilateral: PERRL, EOMI Neck: Normal ROM, Supple Cardiovascular: Rhythm Regular Respiratory: Normal Breath Sounds, No Accessory Muscle Use Gastrointestinal/Abdominal: Soft, No Tenderness Extremity: Normal ROM, Other (Track matos on arms) Neurological/Psych: Oriented x3, Normal Motor, Normal Sensation ED Course And Treatment - Laboratory Results Result Diagrams: 01/20/18 20:58 01/20/18 20:55 Lab Interpretation: No Acute Changes O2 Sat by Pulse Oximetry: 98 Pulse Ox Interpretation: Normal Disposition - Disposition Disposition Time: 01:00 Condition: STABLE Forms: [facility] (Irish) - Clinical Impression Clinical Impression: Drug abuse, Depression Physician Patient Turnover Patient Signed Over To: Waldemar Mendes Handoff Comments: Pending psychiatric admission
--- NOTE | 2018-01-21 11:17 | PCM.PSYCH ---
Initial Psychiatric Evaluation - Initial Psychiatric Evaluation Type of Admission: Voluntary Legal Status: Capacity History of Present Illness and Precipitating Events: Pt is a 32 year old male presenting to [facility] for S/I. Pt reported of hearing voices telling him to, Kill himself. Pt also reported of seeing spots and specs. Pt reported of being, Depressed for the past couple of weeks, he shot 1 1.5 gram of cocaine early today and he stopped taking Abilify which made things worse. Pt reported of having a hx of S/I, he OD 6 months ago and was hospitalized at [facility]. Pt reported of being dx with bipolar, anxiety and depression since he was 10 years old. Pt reported, I stopped taking Abilify because my Medicaid didnt approve it and the suicidal thoughts came rapidly. Pt stated, I tried to OD again today but it didnt work. Pts girlfriend Nichelle called for collateral stating, He constantly says hes going to kill himself, he doesnt feel like himself, he doesnt want to be here anymore. Pt reported of using 1 1.5 grams through an IV bag today. Pt reported of smoking one blunt of marijuana occasionally, pt used 3 bags of heroin through an IV bag today. Pt reported of using 3 grams of cocaine and 20 bags of heroin on a daily basis. Pt denies any other substances. Pt reported of taking his psych meds on and off which pt cannot remember. Pt last went to detox 2 years ago at [facility]. Pt reported his longest period of sobriety was 9 months ago. Pt reports of being under the influence and has an urge to use. Pt reported his dad being an alcoholic and being bipolar. Pt reported of having a hx of withdrawal symptoms of chills and body ache. Pts mood was anxious, speech was pressured and affect was paranoid. Pt stated, I just need to be on the right medications because I know thats why I am suicidal. Current Medications: Active Medications Generic Name Dose Route Start Last Admin Trade Name Freq PRN Reason Stop Dose Admin Bupropion HCl 75 mg 01/21/18 10:00 01/21/18 10:23 Wellbutrin PO 75 mg DAILY LOIDA Administration Hydroxyzine HCl 25 mg 01/21/18 08:30 Atarax PO Q6H PRN Anxiety Risperidone 0.5 mg 01/21/18 10:00 01/21/18 10:23 Risperdal Tab PO 0.5 mg BID LOIDA Administration Past Psychiatric History - Past Psychiatric History Pertinent Medical Hx (Current Medical&Sleep Prob, Allergies): Allergies Allergy/AdvReac Type Severity Reaction Status Date / Time FISH Allergy RASH Verified 10/11/17 01:42 turkey Allergy RASH Verified 10/11/17 01:42 ARIPiprazole [Abilify] 10 mg PO DAILY #30 tab 10/14/17 Mirtazapine [Remeron] 30 mg PO HS #30 tab 10/14/17 buPROPion XL [Wellbutrin XL] 150 mg PO DAILY #30 t24 11/14/17
--- NOTE | 2018-01-21 13:03 | PCM.PSYCH ---
Initial Psychiatric Evaluation - Initial Psychiatric Evaluation Type of Admission: Voluntary Legal Status: Capacity Chief Complaint (in patient's own words): "depressed" History of Present Illness and Precipitating Events: Patient is a 32 yo WM, with h/o depression, opioid use disorder, cocaine use disorder and cannabis use disorder, came to the ED with depressed mood and suicidal ideation. The patient lives with his girlfriend, has a child 7 months old and he is unemployed. The patient is reporting depressive symptoms with vague suicidal ideation but currently he denies it and states he feels safe here. No manic or psychotic symptoms elicited. He is stressed about his life. He is still using up to 30 bags of IV heroin and he started 20 years ago. He also uses IV cocaine up to 2 gm a day. He was in detox 10 times and rehabilitation 5 times. He smokes MJ and half pack per day cigarettes but denies other drugs or alcohol. Past psych history: 6 or 7 admissions with depression, no suicide attempts. Family psych history: Denies Medical history: Hepatitis C Current Medications: Active Medications Generic Name Dose Route Start Last Admin Trade Name Freq PRN Reason Stop Dose Admin Al Hydrox/Mg Hydrox/Simethicone 30 ml 01/21/18 14:00 Maalox 30 Ml PO TID PRN Indigestion / Heartburn Clonidine HCl 0.1 mg 01/21/18 14:00 Catapres PO Q8 PRN COWS Score More or Equal to 5 Haloperidol 5 mg 01/21/18 11:32 Haldol PO Q1H PRN agitation - max 4x/24h Hydroxyzine HCl 25 mg 01/21/18 08:30 Atarax PO Q6H PRN Anxiety Loperamide HCl 2 mg 01/21/18 12:00 Imodium PO Q8H PRN Diarrhea Ondansetron HCl 4 mg 01/21/18 14:00 Zofran Tab PO Q8 PRN Nausea/Vomiting Trazodone HCl 100 mg 01/21/18 22:00 Desyrel PO HS PRN Insomnia Past Psychiatric History - Past Psychiatric History Previous Treatment History: Inpatient Pertinent Medical Hx (Current Medical&Sleep Prob, Allergies): Allergies Allergy/AdvReac Type Severity Reaction Status Date / Time FISH Allergy RASH Verified 10/11/17 01:42 turkey Allergy RASH Verified 10/11/17 01:42 ARIPiprazole [Abilify] 10 mg PO DAILY #30 tab 03/13/18 Mirtazapine [Remeron] 30 mg PO HS #30 tab 10/14/17 buPROPion XL [Wellbutrin XL] 150 mg PO DAILY #30 t24 11/14/17 Review of Systems - Psychiatric Psychiatric: Abnormal Sleep Pattern, Anhedonia, Anxiety, Depression, Difficulty Concentrating. absent: Hallucinations, Homicidal Ideation, Hopelessness, Suicidal Ideation Mental Status Examination - Personal Presentation Personal Presentation: Looks stated age - Affect Affect: Constricted - Motor Activity Motor Activity: Calm - Reliability in Providing Information Reliability in Providing Information: Good - Speech Speech: Organized - Mood Mood: Depressed, Anxious - Formal Thought Process Formal Thought Process: No Impairment - Cognitive Functions Orientation: Person, Place, Situation, Time Sensorium: Alert Attention/Concentration: Attentive Estimate of Intelligence: Average Judgement: Intact, as evidence by: Insight regarding need for hospitalization Memory: Recent intact, as evidence by: Ability to recall events of the day, Remote intact, as evidenced by: Abilit to recall sig. life events - Risk Risk: Withdrawal, Diminished functioning - Strength & Assets Inventory Strength & Assets Inventory: Cooperative - Limitations Limitations: Living alone DSM 5 DX - DSM 5 DSM 5 Diagnosis: Major depressive d/o- recurrent, severe, non-psychotic Opioid withdrawal Opioid use d/o- severe Cocaine use d/o- severe - Recommended/Plan of Treatment Treatment Recommendations and Plan of Treatment: Wellbutrin for depression Taper with methadone Gabapentin for augmentation for now As needed medications All risks, benefits and alternatives of the meds discussed, and the pt agreed and understood. Attend groups and activities Supportive therapy and psychoeducation MT for abstinence CBT for relapse prevention Encourage MAT Refer to rehab or IOP, and self-help groups Smoking cessation with MT Nicotine patch if needed 34 min Projected ELOS: 5-6 days Prognosis: good w treatment - Smoking Cessation Smoking Cessation Initiated: Yes
[2018-01-21] MEDS ORDERED: Aluminum Hydroxide/Magnesium Hydroxide Susp (30 mL) PO PRN (14:00)
--- NOTE | 2018-01-21 14:30 | PCM.BM ---
Treatment Plan Problems - Problems identified on initial assessmt Depression Date Initiated: 01/21/18 Time Initiated: 14:30 Assessment reference: NA Status: Active Treatment assets and liabiliti Patient Assests: cooperative, insightful, resourceful, self-reliant, ADL independent, good support system, negotiates basic needs, cognitively intact - Milieu Protocol Milieu Narrative: Wellbutrin for depression Taper with methadone Gabapentin for augmentation for now As needed medications All risks, benefits and alternatives of the meds discussed, and the pt agreed and understood. Attend groups and activities Supportive therapy and psychoeducation AL for abstinence CBT for relapse prevention Encourage MAT Refer to rehab or IOP, and self-help groups Smoking cessation with AL Nicotine patch if needed 34 min Discharge/Continuing Care - Treatment Team Participation Patient/Family/SO Statement: Wellbutrin for depression Taper with methadone Gabapentin for augmentation for now As needed medications All risks, benefits and alternatives of the meds discussed, and the pt agreed and understood. Attend groups and activities Supportive therapy and psychoeducation AL for abstinence CBT for relapse prevention Encourage MAT Refer to rehab or IOP, and self-help groups Smoking cessation with AL Nicotine patch if needed 34 min
--- NOTE | 2018-01-21 14:33 | PCM.BM ---
<aCrine Salguero - Last Filed: 01/21/18 14:31> Treatment Plan Problems - Problems identified on initial assessmt Depression Date Initiated: 01/21/18 Time Initiated: 14:30 Assessment reference: NA Status: Active Treatment assets and liabiliti Patient Assests: cooperative, insightful, resourceful, self-reliant, ADL independent, good support system, negotiates basic needs, cognitively intact Patient Liabilities: substance abuse - Milieu Protocol Maintain good personal hygiene: daily Encourage regular showers Conduct patient checks and document Observation sheet: Q15 minutes Maintain personal safety: every shift Educate patient to report safety concerns to staff, every shift Monitor environment for contraband/sharps Medication safety: Monitor for expected outcome, potential side effects: every shift, Assess barriers to learning: every shift, Assess readiness for medication education: every shift Milieu Narrative: Wellbutrin for depression Taper with methadone Gabapentin for augmentation for now As needed medications All risks, benefits and alternatives of the meds discussed, and the pt agreed and understood. Attend groups and activities Supportive therapy and psychoeducation PR for abstinence CBT for relapse prevention Encourage MAT Refer to rehab or IOP, and self-help groups Smoking cessation with PR Nicotine patch if needed 34 min Discharge/Continuing Care - Treatment Team Participation Patient/Family/SO Statement: Wellbutrin for depression Taper with methadone Gabapentin for augmentation for now As needed medications All risks, benefits and alternatives of the meds discussed, and the pt agreed and understood. Attend groups and activities Supportive therapy and psychoeducation PR for abstinence CBT for relapse prevention Encourage MAT Refer to rehab or IOP, and self-help groups Smoking cessation with PR Nicotine patch if needed 34 min <Christ Sauer - Last Filed: 01/22/18 14:25> - Diagnosis (1) Major depression Status: Acute Interventions: 01/22/18 14:25 * Assess/adjust medications daily and /or as needed * See patient on an individual basis 7x/week to assess symptoms of depression * Monitor for side effects & effectiveness of medications * (2) Opioid use disorder, severe, dependence Status: Acute Interventions: 01/22/18 14:25 * Assess 7x/week regarding severity of withdrawal * Educate regarding risks, benefits, side effects and alternatives of medications * Use Motivational Interviewing for abstinence * Use CBT for relapse prevention * Medication management for withdrawal symptoms * Encourage medication assisted treatment * <Malgorzata Maynard - Last Filed: 01/23/18 14:12> Family Contact Family involvement: Famliy/SO not involved - Goals for Treatment Patient goals for treatment: "I want to go to rehab." Discharge/Continuing Care - Education Needs Education Needs: Patient Medication, Patient Coping Skills, Patient Placement options, Patient Community resources - Discharge Discharge Criteria: Tolerates medication w/o severe side effects, Reduction of target symptoms Discharge to:: Substance Abuse Rehab - Treatment Team Participation Discussed with Family/SO: No Was Patient/Family/SO present at Treatment Team Meeting: Yes
[2018-01-22] MEDS: buPROPion 150 mg/24 Hours XL Tab PO SCH (10:26)
--- NOTE | 2018-01-22 10:58 | PCM.PYCHPN ---
Psychiatric Progress Note - Psychiatric Progress Note Patient seen today, length of contact: 16 min Patient Chief Complaint: "Not doing well yet" Problems Identified/Issues Discussed: The pt is seen, chart reviewed, case discussed with staff. Support and psychoeducation given, CBT and [facility] used briefly No new symptoms reported, improving slowly and needs more time No SEs from medications, risks discussed. After care discussed Medication Change: Yes (detox changes daily) Medical Record Reviewed: Yes Mental Status Examination - Cognitive Function Orientation: Person, Place, Situation, Time Memory: Intact Attention: Poor Concentration: Poor Association: WNL Fund of Knowledge: WNL - Mood Mood: Depressed, Anxious - Affect Affect: Constricted - Speech Speech: Appropriate - Formal Thought Process Formal Thought Process: No Impairment - Suicidal Ideation Suicidal Ideation: No - Homicidal Ideation Homicidal Ideation: No Goal/Treatment Plan - Goal/Treatment Plan Need for Continued Stay: Discharge may exacerbated symptoms, Severe functional impairment Progress Toward Problem(s) and Goals/Treatment Plan: Wellbutrin for depression Taper with methadone Gabapentin for augmentation for now As needed medications All risks, benefits and alternatives of the meds discussed, and the pt agreed and understood. Attend groups and activities Supportive therapy and psychoeducation [place] for abstinence CBT for relapse prevention Encourage MAT Refer to rehab or IOP, and self-help groups Smoking cessation with VA Nicotine patch if needed Estimated Date of D/C: 01/27/18 - Smoking Cessation Smoking Cessation Initiated: Yes
[2018-01-23] MEDS: buPROPion 150 mg/24 Hours XL Tab PO SCH (09:47)
--- NOTE | 2018-01-23 11:29 | PCM.PYCHPN ---
Psychiatric Progress Note - Psychiatric Progress Note Patient seen today, length of contact: 16 min Patient Chief Complaint: "Better today" Problems Identified/Issues Discussed: The pt is seen with the team, chart reviewed, case discussed with staff. The pt is compliant with medications and reports no side-effects. Symptoms are improving but needs more time to stabilize. Still depressed and in detox process After care discussed, referred to [facility] support and psychoeducation given. Medication Change: Yes (detox changes daily) Medical Record Reviewed: Yes Mental Status Examination - Cognitive Function Orientation: Person, Place, Situation, Time Memory: Intact Attention: Poor Concentration: Poor Association: WNL Fund of Knowledge: WNL - Mood Mood: Depressed, Anxious - Affect Affect: Constricted - Speech Speech: Appropriate - Formal Thought Process Formal Thought Process: No Impairment - Suicidal Ideation Suicidal Ideation: No - Homicidal Ideation Homicidal Ideation: No Goal/Treatment Plan - Goal/Treatment Plan Need for Continued Stay: Discharge may exacerbated symptoms, Severe functional impairment Progress Toward Problem(s) and Goals/Treatment Plan: Wellbutrin for depression Taper with methadone Gabapentin for augmentation for now As needed medications All risks, benefits and alternatives of the meds discussed, and the pt agreed and understood. Attend groups and activities Supportive therapy and psychoeducation MN for abstinence CBT for relapse prevention Encourage MAT Refer to rehab or IOP, and self-help groups Smoking cessation with MN Nicotine patch if needed Estimated Date of D/C: 01/27/18
[2018-01-24 07:16] VITALS: TEMP 97.7
[2018-01-24] MEDS: buPROPion 150 mg/24 Hours XL Tab PO SCH (09:17)
--- NOTE | 2018-01-24 18:13 | PCM.PYCHPN ---
Psychiatric Progress Note - Psychiatric Progress Note Patient seen today, length of contact: 15 minutes Patient Chief Complaint: I'm feeling much better with the treatment. Problems Identified/Issues Discussed: Patient seen, chart reviewed, case discussed with the staff. Issues related to illness and treatment were discussed with the patient and staff. Reported compliant with treatment with no adverse affects. Tolerating treatment very well. Feeling much better. Aftercare discussed with the patient. At the time of evaluation, patient was awake alert oriented 3, had no delusions , no auditory or visual hallucinations, no suicidal ideations or homicidal ideations. Medical Problems: Hepatitis C Diagnostic Results: Reviewed DSM 5 Symptoms Update: Some improvement with treatment Medication Change: No Medical Record Reviewed: Yes Mental Status Examination - Cognitive Function Orientation: Person, Place, Situation, Time Memory: Intact Attention: WNL Concentration: WNL Association: [facility] Fund of Knowledge: [facility] Decription of patient's judgement and insights: Fair - Mood Mood: Anxious - Affect Affect: Other (Appropriate) - Speech Speech: Appropriate - Formal Thought Process Formal Thought Process: No Impairment Psychotic Thoughts and Behaviors: None - Suicidal Ideation Suicidal Ideation: No - Homicidal Ideation Homicidal Ideation: No Goal/Treatment Plan - Goal/Treatment Plan Need for Continued Stay: Remain at risks for inpatient hospitalization, Discharge may exacerbated symptoms, Severe functional impairment Progress Toward Problem(s) and Goals/Treatment Plan: Patient education. Supportive therapy. CBT for relapse prevention. M I for abstinence. Continue rest of the treatment as before Estimated Date of D/C: 01/27/18 - Smoking Cessation Smoking Cessation Initiated: Yes
[2018-01-25] MEDS: buPROPion 150 mg/24 Hours XL Tab PO SCH (09:55)
[2018-01-25 13:26] VITALS: RESP 20
--- NOTE | 2018-01-25 18:19 | PCM.PYCHPN ---
Psychiatric Progress Note - Psychiatric Progress Note Patient seen today, length of contact: 15 minutes Patient Chief Complaint: I'm feeling much better with the treatment. Problems Identified/Issues Discussed: Patient seen, chart reviewed, case discussed with the staff. Issues related to illness and treatment were discussed with the patient and staff. Reported compliant with treatment with no adverse affects. Tolerating treatment very well. Feeling much better. Patient was complaining about some redness and itching between eyebrows. We will start Benadryl for 2 days. Patient agreed. Aftercare discussed with the patient. At the time of evaluation, patient was awake alert oriented 3, had no delusions , no auditory or visual hallucinations, no suicidal ideations or homicidal ideations. Medical Problems: Hepatitis C Diagnostic Results: Reviewed DSM 5 Symptoms Update: Improving with treatment. Medication Change: No Medical Record Reviewed: Yes Mental Status Examination - Cognitive Function Orientation: Person, Place, Situation, Time Memory: Intact Attention: WNL Concentration: WNL Association: WNL Fund of Knowledge: WNL Decription of patient's judgement and insights: Fair - Mood Mood: Anxious - Affect Affect: Other (Appropriate) - Speech Speech: Appropriate - Formal Thought Process Formal Thought Process: No Impairment Psychotic Thoughts and Behaviors: None - Suicidal Ideation Suicidal Ideation: No - Homicidal Ideation Homicidal Ideation: No Goal/Treatment Plan - Goal/Treatment Plan Need for Continued Stay: Remain at risks for inpatient hospitalization, Discharge may exacerbated symptoms, Severe functional impairment Progress Toward Problem(s) and Goals/Treatment Plan: Patient education. Supportive therapy. CBT for relapse prevention. M I for abstinence. Will start Benadryl 50 mg every 12 for 2 days. Continue rest of the treatment as before Estimated Date of D/C: 01/27/18 - Smoking Cessation Smoking Cessation Initiated: Yes
[2018-01-26 06:22] VITALS: BP 107/66; PULSE 60; O2SAT 98
[2018-01-26] MEDS: buPROPion 150 mg/24 Hours XL Tab PO SCH (09:41)
--- NOTE | 2018-01-26 10:00 | PCM.PYCHDC ---
Mental Status Examination - Mental Status Examination Orientation: Person, Place, Situation, Time Memory: Intact Mood: Anxious Affect: Constricted Speech: Appropriate Attention: WNL Concentration: Poor Association: WNL Fund of Knowledge: WNL Formal Thought Process: No Impairment Suicidal Ideation: No Current Homicidal Ideation?: No Discharge Summary - Discharge Note Reason for Hospitalization: Depression, SI and heroin withdrawal Consultations:: List each consultation separately and include: 1. Reason for request. 2. Findings. 3. Follow-up Summary of Hospital Course include:: 1. Description of specific treatment plan utilized for patients during their course of treatmen. 2. Summarize the time- course for resolution of acute symptoms and/or regressed behaviors. 3. Describe issues identified and worked on during hospitalization. 4. Describe medication utilized. 5. Describe medical problems identified and treated. 6. Reassessment of suicide risk Summary of Hospital Course: He is seen, chart reviewed and case discussed. On admission: Patient is a 32 yo WM, with h/o depression, opioid use disorder, cocaine use disorder and cannabis use disorder, came to the ED with depressed mood and suicidal ideation. The patient lives with his girlfriend, has a child 7 months old and he is unemployed. The patient is reporting depressive symptoms with vague suicidal ideation but currently he denies it and states he feels safe here. No manic or psychotic symptoms elicited. He is stressed about his life. He is still using up to 30 bags of IV heroin and he started 20 years ago. He also uses IV cocaine up to 2 gm a day. He was in detox 10 times and rehabilitation 5 times. He smokes MJ and half pack per day cigarettes but denies other drugs or alcohol. Past psych history: 6 or 7 admissions with depression, no suicide attempts. Family psych history: Denies Medical history: Hepatitis C He left a day early without confirming if he was accepted by [facility]. However, he claimed his toddler got injured and also he needed to get his clothes. He "assured" that he would be with his all the time and go directly to [facility] in [facility]. Risks (relapse, OD, , etc.) discussed, he understood but still left. Not AMA as he improved and completed his detox. Meds sent to his pharmacy. - Final Diagnosis (DSM 5) Condition upon Discharge: STABLE Disposition: HOME/ ROUTINE Prescriptions/Medication Reconciliation: buPROPion XL [Wellbutrin XL] 150 mg PO DAILY #30 t24 Gabapentin [Neurontin] 300 mg PO TID #90 cap traZODone [Desyrel] 100 mg PO HS PRN #30 tab PRN Reason: Insomnia - Smoking Cessation Smoking Cessation Medication prescribed: No - Antipsychotic Medications Pt discharged on 2 or more routine antipsychotic medications: No
== END 2018-01-26 10:40 | disposition home or self-care (01) | DRG 430 ==
LOC: C.ER 20:18 → C.9E 01-21 03:44 → C.5E 01-21 10:41
PROVIDERS: ADMIT Psychiatry & Neurology Psychiatry; ATTEND Psychiatry & Neurology Psychiatry
PROC: GZ3ZZZZ Medication Management (ICD-10-PCS; principal; 2018-01-21)
PROC: HZ2ZZZZ Detoxification Services for Substance Abuse Treatment (ICD-10-PCS; 2018-01-21)
PROC: HZ81ZZZ Medication Management for Substance Abuse Treatment, Methadone Maintenance (ICD-10-PCS; 2018-01-21)
PROC: GZHZZZZ Group Psychotherapy (ICD-10-PCS; 2018-01-21)
PROC: GZ56ZZZ Individual Psychotherapy, Supportive (ICD-10-PCS; 2018-01-21)
DX: F33.2 Major depressive disorder, recurrent severe without psychotic features (principal); F11.23 Opioid dependence with withdrawal; F14.90 Cocaine use, unspecified, uncomplicated; R45.851 Suicidal ideations; F31.9 Bipolar disorder, unspecified; B18.2 Chronic viral hepatitis C; F17.210 Nicotine dependence, cigarettes, uncomplicated